=== PATIENT | male | born 1970 | race Caucasian/White ===

== ENCOUNTER 2021-05-07 23:04 | Inpatient (IN) | payer MEDICARE, OTHER ==
[~2021-05-07] VITALS: Ht 188 cm; Wt 114.9 kg
[~2021-05-07 23:04] MED LIST: NOR10T PO; OME20GT PO; SUCR1SUS16 OR
[2021-05-08 00:06] LABS: Basophils # (auto) 0 10 ^3/uL (0-0.2); Basophils % (auto) 0.3 % (0.0-2.0); Eosinophils # (auto) 0.1 10 ^3/uL (0-0.8); Eosinophils % (auto) 1.2 % (0.0-7.0); Hematocrit 38.7 % (41.0-53.0); Hemoglobin 13.5 g/dL (13.5-17.5); Lymphocytes # (auto) 0.9 10 ^3/uL (0.4-5.4); Lymphocytes % (auto) 11.7 % (10.0-50.0); Mean Corpuscular Hemoglobin 30.9 pg (28.0-32.0); Mean Corpuscular Volume 88.4 fL (80.0-100.0); Monocytes # (auto) 0.5 10 ^3/uL (0-1.3); Monocytes % (auto) 6.2 % (0.0-12.0); Neutrophils # (auto) 6.1 10 ^3/uL (1.6-8.6); Neutrophils % (auto) 80.6 % (37.0-80.0); Nucleated Red Blood Cells % 0.1 %; Red Blood Cells 4.38 10^6/uL (4.5-5.90); White Blood Cell 7.6 10^3/uL (4.4-10.8)
[2021-05-08 00:17] LABS: Albumin 4.2 g/dL (3.4-5.0); Calcium 8.5 mg/dL (8.5-10.1); Potassium 3.5 mmol/L (3.5-5.1)
[2021-05-08 00:20] LABS: Bilirubin, Total 0.8 mg/dL (0.2-1.0); Total Protein 7.3 g/dL (6.4-8.2)
[2021-05-08] MEDS ORDERED: ONDANSETRON HCL 4 MG/2 ML VIAL IV ONE (02:30)
[2021-05-08] MEDS ORDERED: MORPHINE SULFATE 10 MG/ML INJ 1ML SDV IV ONE (02:30)
[2021-05-08] MEDS ORDERED: SODIUM CHLORIDE 0.9% 1,000 ML IVB ONE (02:30)
[2021-05-08] MEDS ORDERED: MORPHINE SULF INJ 2 MG/ML SYRINGE 1ML IV ONE ×2 (02:45→05:15)
[2021-05-08] MEDS ORDERED: MORPHINE SULFATE 4 MG/ML SYR/VIAL IV ONE (02:45)
[2021-05-08 03:16] LABS: Amylase 54 U/L (25-115); Lipase 324 U/L (73-393)
[2021-05-08] MEDS ORDERED: MORPHINE SULF INJ 2 MG/ML SYRINGE 1ML IV PRN ×2 (07:30)
[2021-05-08] MEDS ORDERED: NITROGLYCERIN 0.4 MG SL TAB SL PRN (07:30)
[2021-05-08] MEDS ORDERED: ACETAMINOPHEN 325 MG TAB PO PRN (07:30)
[2021-05-08] MEDS: SODIUM CHLORIDE 0.9% 1,000 ML IV SCH (08:28)
[2021-05-08 08:33] LABS: Urine Bacteria FEW /hpf (None Seen); Urine Blood Negative /uL (Negative); Urine Mucus FEW (None Seen); Urine Specific Gravity 1.028 (1.001-1.035); Urine WBC 3 /hpf (0 - 3)
[2021-05-08] MEDS: ONDANSETRON HCL 4 MG/2 ML VIAL IV PRN ×2 (08:38→20:34)
[2021-05-08] MEDS: ENOXAPARIN SOD 40 MG/0.4 ML SYRINGE SC SCH (10:00)
[2021-05-08] MEDS: FAMOTIDINE (10MG/ML) 2ML VL IV SCH ×2 (10:30→22:45)
[2021-05-08 12:45] VITALS: BP 122/72
[2021-05-08] MEDS: HYDROmorphone HCL 2 MG/ML VL IV PRN ×3 (13:00→20:27)
[2021-05-08 13:05] VITALS: BP 122/72
[2021-05-08] MEDS ORDERED: BUSP10TA90 PO (13:07)
[2021-05-08] MEDS ORDERED: TRAZ50TA2 PO (13:07)
[2021-05-08] MEDS ORDERED: ATOR10TA PO (13:07)
[2021-05-08] MEDS ORDERED: FENO200C PO (13:07)
[2021-05-08] MEDS ORDERED: QUET200T86 PO (13:07)
[2021-05-08] MEDS ORDERED: LAMO100T44 PO (13:07)
[2021-05-08] MEDS ORDERED: LISI40TA11 PO (13:07)
[2021-05-08] MEDS ORDERED: HYDR50TA69 PO (13:07)
[2021-05-08] MEDS ORDERED: METF-370 PO (13:07)
[2021-05-08 14:07] LABS: INR 1.09 (0.9-1.15)
[2021-05-08] MEDS: metroNIDAZOLE 500MG/100ML 100 ML IV SCH ×2 (14:09→22:45)
[2021-05-08] MEDS ORDERED: BARIUM SULFATE 0.1% PO ONE (15:23)
[2021-05-08 16:22] VITALS: BP 108/60
[2021-05-08] MEDS: PIPERACILLIN-TAZOB 3.375GM 100 ML IV SCH (19:31)
[2021-05-08 22:00] VITALS: BP 113/73
[2021-05-09] MEDS: PIPERACILLIN-TAZOB 3.375GM 100 ML IV SCH ×4 (00:39→17:47)
[2021-05-09] MEDS: HYDROmorphone HCL 2 MG/ML VL IV PRN ×7 (00:39→21:41)
[2021-05-09] MEDS: SODIUM CHLORIDE 0.9% 1,000 ML IV SCH ×2 (00:39→17:30)
[2021-05-09 05:00] VITALS: BP 137/75
[2021-05-09] MEDS: metroNIDAZOLE 500MG/100ML 100 ML IV SCH ×3 (05:55→21:41)
[2021-05-09 05:57] LABS: Basophils # (auto) 0 10 ^3/uL (0-0.2); Basophils % (auto) 0.5 % (0.0-2.0); Eosinophils # (auto) 0.1 10 ^3/uL (0-0.8); Eosinophils % (auto) 2.1 % (0.0-7.0); Hematocrit 34.9 % (41.0-53.0); Hemoglobin 12.1 g/dL (13.5-17.5); Lymphocytes # (auto) 1.5 10 ^3/uL (0.4-5.4); Lymphocytes % (auto) 29.4 % (10.0-50.0); Mean Corpuscular Hemoglobin 30.5 pg (28.0-32.0); Mean Corpuscular Hgb Conc. 34.8 g/dL (32.0-36.0); Mean Corpuscular Volume 87.8 fL (80.0-100.0); Monocytes # (auto) 0.6 10 ^3/uL (0-1.3); Monocytes % (auto) 12.8 % (0.0-12.0); Neutrophils # (auto) 2.7 10 ^3/uL (1.6-8.6); Neutrophils % (auto) 55.2 % (37.0-80.0); Red Blood Cells 3.97 10^6/uL (4.5-5.90); Red Cell Distribution Width 12.9 % (11.8-14.3); White Blood Cell 4.9 10^3/uL (4.4-10.8)
[2021-05-09 06:31] LABS: Potassium 3.7 mmol/L (3.5-5.1)
[2021-05-09 06:39] LABS: Albumin 3.3 g/dL (3.4-5.0); BUN/Creatinine Ratio 17.3; Bilirubin, Total 0.5 mg/dL (0.2-1.0); Calcium 7.9 mg/dL (8.5-10.1); Total Protein 6.5 g/dL (6.4-8.2)
[2021-05-09] MEDS: ONDANSETRON HCL 4 MG/2 ML VIAL IV PRN ×3 (07:14→17:46)
[2021-05-09 09:00] VITALS: BP 111/64
[2021-05-09] MEDS: FAMOTIDINE (10MG/ML) 2ML VL IV SCH ×2 (10:25→21:41)
[2021-05-09] MEDS: ENOXAPARIN SOD 40 MG/0.4 ML SYRINGE SC SCH (10:25)
[2021-05-09 13:00] VITALS: BP 121/66
[2021-05-09 17:00] VITALS: BP 138/74
[2021-05-09 22:00] VITALS: BP 131/77
[2021-05-10] MEDS: PIPERACILLIN-TAZOB 3.375GM 100 ML IV SCH ×4 (00:47→17:17)
[2021-05-10] MEDS: HYDROmorphone HCL 2 MG/ML VL IV PRN ×7 (00:58→20:58)
[2021-05-10 05:26] VITALS: BP 121/53
[2021-05-10] MEDS: metroNIDAZOLE 500MG/100ML 100 ML IV SCH ×3 (05:32→21:59)
[2021-05-10] MEDS: ONDANSETRON HCL 4 MG/2 ML VIAL IV PRN (05:40)
[2021-05-10 05:42] LABS: Basophils # (auto) 0 10 ^3/uL (0-0.2); Basophils % (auto) 0.9 % (0.0-2.0); Eosinophils # (auto) 0.1 10 ^3/uL (0-0.8); Eosinophils % (auto) 2.9 % (0.0-7.0); Hematocrit 37.8 % (41.0-53.0); Hemoglobin 13.4 g/dL (13.5-17.5); Lymphocytes # (auto) 2.1 10 ^3/uL (0.4-5.4); Lymphocytes % (auto) 48.2 % (10.0-50.0); Mean Corpuscular Hemoglobin 31.2 pg (28.0-32.0); Mean Corpuscular Hgb Conc. 35.6 g/dL (32.0-36.0); Mean Corpuscular Volume 87.8 fL (80.0-100.0); Monocytes # (auto) 0.6 10 ^3/uL (0-1.3); Monocytes % (auto) 13.4 % (0.0-12.0); Neutrophils # (auto) 1.5 10 ^3/uL (1.6-8.6); Neutrophils % (auto) 34.6 % (37.0-80.0); Nucleated Red Blood Cells % 0.1 %; Red Cell Distribution Width 12.6 % (11.8-14.3); White Blood Cell 4.4 10^3/uL (4.4-10.8)
[2021-05-10 06:06] LABS: Potassium 3.8 mmol/L (3.5-5.1)
[2021-05-10 06:13] LABS: Albumin 3.8 g/dL (3.4-5.0); BUN/Creatinine Ratio 11.2; Bilirubin, Total 0.5 mg/dL (0.2-1.0); Calcium 8.4 mg/dL (8.5-10.1); Total Protein 7.6 g/dL (6.4-8.2)
[2021-05-10 09:00] VITALS: BP 124/71
[2021-05-10] MEDS: FAMOTIDINE (10MG/ML) 2ML VL IV SCH ×2 (09:17→22:03)
[2021-05-10] MEDS: ENOXAPARIN SOD 40 MG/0.4 ML SYRINGE SC SCH (09:18)
[2021-05-10] MEDS: SODIUM CHLORIDE 0.9% 1,000 ML IV SCH (09:30)
[2021-05-10] MEDS ORDERED: GOLYTELY 4L KIT PO ONE (10:00)
[2021-05-10 11:42] LABS: INR 1.08 (0.9-1.15); Partial Thromboplastin Time 26.5 sec (23.0-31.2)
[2021-05-10] MEDS ORDERED: hydrOXYzine 25 MG TAB or CAP PO PRN (12:00)
[2021-05-10 13:00] VITALS: BP 148/76
[2021-05-10 17:00] VITALS: BP 114/64
[2021-05-10] MEDS: traZODone HCL 50 MG TAB PO PRN (20:43)
[2021-05-10] MEDS: busPIRone HCL 10 MG TAB PO SCH (21:59)
[2021-05-10] MEDS: QUEtiapine FUMARATE 100 MG TAB PO SCH (21:59)
[2021-05-10 22:00] VITALS: BP 151/74
[2021-05-10] MEDS ORDERED: traZODone HCL 50 MG TAB PO SCH (22:00)
[2021-05-11] MEDS: PIPERACILLIN-TAZOB 3.375GM 100 ML IV SCH ×5 (00:04→18:22)
[2021-05-11] MEDS: HYDROmorphone HCL 2 MG/ML VL IV PRN ×7 (00:05→22:31)
[2021-05-11] MEDS: SODIUM CHLORIDE 0.9% 1,000 ML IV SCH ×2 (03:13→18:23)
[2021-05-11 04:46] LABS: Basophils # (auto) 0 10 ^3/uL (0-0.2); Basophils % (auto) 0.7 % (0.0-2.0); Eosinophils # (auto) 0.1 10 ^3/uL (0-0.8); Eosinophils % (auto) 1.8 % (0.0-7.0); Hematocrit 33.1 % (41.0-53.0); Hemoglobin 11.8 g/dL (13.5-17.5); Lymphocytes # (auto) 1.8 10 ^3/uL (0.4-5.4); Lymphocytes % (auto) 47.2 % (10.0-50.0); Mean Corpuscular Hemoglobin 30.8 pg (28.0-32.0); Mean Corpuscular Hgb Conc. 35.6 g/dL (32.0-36.0); Mean Corpuscular Volume 86.6 fL (80.0-100.0); Monocytes # (auto) 0.4 10 ^3/uL (0-1.3); Neutrophils # (auto) 1.5 10 ^3/uL (1.6-8.6); Neutrophils % (auto) 39.3 % (37.0-80.0); Nucleated Red Blood Cells % 0.1 %; Red Blood Cells 3.82 10^6/uL (4.5-5.90); Red Cell Distribution Width 12.8 % (11.8-14.3); White Blood Cell 3.9 10^3/uL (4.4-10.8)
[2021-05-11 05:00] VITALS: BP 128/57
[2021-05-11 05:04] LABS: Potassium 3.8 mmol/L (3.5-5.1)
[2021-05-11 05:09] LABS: BUN/Creatinine Ratio 9.8; Calcium 8.3 mg/dL (8.5-10.1)
[2021-05-11] MEDS: metroNIDAZOLE 500MG/100ML 100 ML IV SCH ×3 (05:36→21:31)
[2021-05-11 09:00] VITALS: BP 123/64
[2021-05-11] MEDS: FAMOTIDINE (10MG/ML) 2ML VL IV SCH ×2 (09:36→21:31)
[2021-05-11] MEDS: lamoTRIgine 100 MG TAB PO SCH (09:36)
[2021-05-11] MEDS: busPIRone HCL 10 MG TAB PO SCH ×2 (09:36→21:31)
[2021-05-11] MEDS: ENOXAPARIN SOD 40 MG/0.4 ML SYRINGE SC SCH (09:39)
[2021-05-11] MEDS ORDERED: QUEtiapine FUMARATE 100 MG TAB PO SCH (10:00)
[2021-05-11] MEDS ORDERED: LIDOCAINE VISCOUS 2% 15ML UD ONE (11:51)
[2021-05-11] MEDS ORDERED: SODIUM CHLORIDE LOCK 10 ML ONE (11:51)
[2021-05-11] MEDS ORDERED: diphenhdrAMINE HCL 50 MG/1 ML VL ONE (11:51)
[2021-05-11] MEDS: MIDAZOLAM HCL 5 MG/ML-1ML VIAL ONE ×3 (12:52→13:06)
[2021-05-11] MEDS: fentaNYL CITRATE 100 MCG/2 ML VL ONE ×3 (12:52→13:06)
[2021-05-11] MEDS ORDERED: SIMETHICONE 40 MG/0.6 ML ORAL DROP ONE (12:53)
[2021-05-11 13:00] VITALS: BP 132/72
[2021-05-11 16:46] VITALS: BP 127/79
[2021-05-11] MEDS: traZODone HCL 50 MG TAB PO PRN (21:32)
[2021-05-11] MEDS: QUEtiapine FUMARATE 100 MG TAB PO SCH (21:32)
[2021-05-11 22:00] VITALS: BP 135/72
[2021-05-12] MEDS: PIPERACILLIN-TAZOB 3.375GM 100 ML IV SCH ×2 (00:27→06:15)
[2021-05-12 05:00] VITALS: BP 139/67
[2021-05-12] MEDS: metroNIDAZOLE 500MG/100ML 100 ML IV SCH (05:15)
[2021-05-12] MEDS: lamoTRIgine 100 MG TAB PO SCH (08:50)
[2021-05-12] MEDS: busPIRone HCL 10 MG TAB PO SCH (08:50)
[2021-05-12] MEDS: ENOXAPARIN SOD 40 MG/0.4 ML SYRINGE SC SCH (08:50)
[2021-05-12] MEDS: FAMOTIDINE (10MG/ML) 2ML VL IV SCH (08:51)
[2021-05-12] MEDS: HYDROmorphone HCL 2 MG/ML VL IV PRN ×2 (08:54→12:37)
[2021-05-12 09:00] VITALS: BP 128/65
[2021-05-12] MEDS ORDERED: levoFLOXacin 500 MG TAB PO SCH (10:00)
[2021-05-12] MEDS: SODIUM CHLORIDE 0.9% 1,000 ML IV SCH (11:30)
[2021-05-12 13:00] VITALS: BP 146/78
[2021-05-12 13:16] VITALS: BP 128/65
[2021-05-12] MEDS ORDERED: metroNIDAZOLE 500 MG TAB PO SCH (14:00)
== END 2021-05-12 14:14 | disposition home or self-care (01) | DRG 394 ==
LOC: EDBD 23:04 → ER 23:04 → EDUNIT# 23:04 → TELE 05-08 07:36 → TELE-WESTW 05-08 11:03
PROVIDERS: ADMIT Nurse Practitioner Family; ATTEND Family Medicine
PROC: 0DJD8ZZ Inspection of Lower Intestinal Tract, Via Natural or Artificial Opening Endoscopic (ICD-10-PCS; principal; 2021-05-11 12:50)
PROC: 0DJ08ZZ Inspection of Upper Intestinal Tract, Via Natural or Artificial Opening Endoscopic (ICD-10-PCS; 2021-05-11 12:50)
DX: K55.9 Vascular disorder of intestine, unspecified (principal); K50.90 Crohn's disease, unspecified, without complications; N20.0 Calculus of kidney; I86.1 Scrotal varices; N43.3 Hydrocele, unspecified; E11.65 Type 2 diabetes mellitus with hyperglycemia; D63.8 Anemia in other chronic diseases classified elsewhere; I10 Essential (primary) hypertension; E66.9 Obesity, unspecified; Z68.32 Body mass index [BMI] 32.0-32.9, adult; Z20.822 Contact with and (suspected) exposure to COVID-19; K42.9 Umbilical hernia without obstruction or gangrene; F41.9 Anxiety disorder, unspecified; K76.0 Fatty (change of) liver, not elsewhere classified; Z87.442 Personal history of urinary calculi; Z79.84 Long term (current) use of oral hypoglycemic drugs; Z79.899 Other long term (current) drug therapy
CPT/HCPCS: 36415; 74176; 76705; 76870; 80048; 80053; 81001; 82150; 83036; 83605; 83690; 83735; 84443; 85025; 85610; 85730; 86850; 86900; 86901; 87040; 87086; 87426; 93005; 96361; 96372; 96374; 96375; 96376; G0378; J2250; J2405; J2543; J3490

== ENCOUNTER → 2021-06-02 | Outpatient (CLI) | payer MEDICARE ==
[~2021-06-02] MED LIST changes: +ATOR10TA PO; +BUSP10TA90 PO; +FENO200C PO; +HYDR50TA69 PO; +LAMO100T44 PO; +LISI40TA11 PO; +METF-370 PO; +QUET200T86 PO; -SUCR1SUS16 OR; +TRAZ50TA2 PO
== END | disposition home or self-care (01) ==
LOC: LAB 11:56
PROVIDERS: ATTEND Internal Medicine Gastroenterology
DX: R10.10 Upper abdominal pain, unspecified (principal)
CPT/HCPCS: 82784; 83516; 86255

== ENCOUNTER 2025-08-19 16:12 | Inpatient (IN) | payer MEDICARE, MEDICAID ==
[~2025-08-19] VITALS: Ht 188 cm; Wt 117.2 kg
[~2025-08-19 16:12] MED LIST changes: -FENO200C PO; +FENO200C25 PO; -LISI40TA11 PO; +LISI40TA16 PO; +TRAZ-227 PO; -TRAZ50TA2 PO
--- NOTE | 2025-08-19 17:28 | DVH ---
CHEST RADIOGRAPH Indication: hypotension Technique: Single frontal view of the chest was obtained Comparison: None FINDINGS: Lines and Tubes: None Lungs: No focal consolidation. Pleura: No effusion. No pneumothorax. Cardiomediastinal contours: Unremarkable Bones: No acute osseous abnormality. IMPRESSION: 1. No acute cardiopulmonary disease.
--- NOTE | 2025-08-19 17:30 | DVH ---
Indication: abd pain Technique: CT axial images of the abdomen and pelvis are obtained without contrast. Coronal and sagit lucy reformats were obtained. Radiation Dose Information: CTDI volume is 21.62 mGy. Dose-length product is 1305.43 mGy*cm Comparison: CT AB PEL WITH ORAL CON ONLY on DOS: 05/08/21, CT ABD PELVIS WO CONTRAST on DOS: 05/07/21 FINDINGS: There is limited interpretation of the abdomen and pelvis without administration of intravenous contr ast. Lung bases demonstrate no pleural effusion. Adrenal glands, spleen, pancreas unremarkable in shape. No CT evidence for cholelithiasis. Liver unr emarkable in shape. The Right kidney demonstrates moderate right hydroureteronephrosis secondary to a mid right ureteral calculus measuring 9 mm Left kidney demonstrates no hydronephrosis /nephrolithiasis. Stomach partially distended. Small bowel loops are normal in caliber. Moderate volume stool in the colon. Normal appendix. Abdominal aortic atherosclerotic disease. Bladder partially distended. No free pelvic fluid. No ingu inal lymphadenopathy. Paraumbilical hernia containing fat measuring 7.5 x 4.6 cm. Moderate thoracolumbar degenerative disc disease. Interbody spacer at L4-5. IMPRESSION: Limited evaluation without contrast. Moderate right hydroureteronephrosis secondary to a mid right ureteral calculus measuring 9 mm. Periumbilical hernia containing fat measuring 7.5 x 4.6 cm. Moderate volume stool in the colon. Other findings as described
[2025-08-19 17:46] LABS: Hematocrit 37.1 % (41.0-53.0); Hemoglobin 12.9 g/dL (13.5-17.5); Mean Corpuscular Hemoglobin 29.7 pg (28.0-32.0); Mean Corpuscular Volume 85.5 fL (80.0-100.0); Nucleated Red Blood Cells % 0.1 %
[2025-08-19 17:52] LABS: Alanine Aminotransferase 25 U/L (7-40); Alkaline Phosphatase 49 U/L (46-116); Calcium 9.7 mg/dL (8.7-10.4); Carbon Dioxide 26 mmol/L (20-31); Chloride 107 mmol/L (98-107)
[2025-08-19 17:53] LABS: Albumin 4.6 g/dL (3.2-4.8); Anion Gap 10 (5-15); BUN/Creatinine Ratio 17.7 (10.0-20.0); Blood Urea Nitrogen 20 mg/dL (9-23); Potassium 4.1 mmol/L (3.5-5.1); Sodium 143 mmol/L (136-145); Total Protein 7.2 g/dL (5.7-8.2)
--- NOTE | 2025-08-19 17:58 | ED.PDOC ---
HPI Comments Mr. Phillips is a 54 year old male with prior medical history of kidney stone, hypertension, and type 2 diabetes mellitus, who presents today with chief complaint of hypotension. The patient states that he woke up this morning and felt lightheadedness associated with shortness of breath, he states his blood pressure reading was 86/70 mmHg, prompted him to seek medical attention room. Per the patient, for his blood pressure he is prescribed amlodipine and lisinopril, however he usually only takes lisinopril and will only take amlodipine PRN, which he did last night. He refers previous episode provoked by taking amlodipine PRN. On initial evaluation in the ED, the patient seems well, normal cardiac, BP is 128/87 mm Hg, saturating appropriately on room air, he is able to walk without difficulty, and with no overt signs of distress. Attestation note: Dr. Adler: I was the supervising attending for this ED encounter. Please see the resident's notes. I was available for questions and consultations. Differential diagnosis: As far as shortness of breath DDx include ACS, unstable angina, anxiety, PE, pneumothroax, neoplasm, cardiac ischemia, COPD, asthma, CHF, pleural effusion, tobacco abuse, pneumonia, hypoxia, hypercapnia, anemia., infection/sepsis., pulmonary edema. Asthma, Cardiac tamponade, infection. MDM: MDM: patient presented with the above HPI.-dyspnea and hypotension-----workup was initiated. patient was found with the above mentioned diagnosis. the following medications were ordered: please refer to order lists of meds and tests obtained by myself Dr. Adler. Patient ED course and VS have been stabilized. Patient has been reassessed in the ED and remained in a stable condition. Pertinent incidental findings were discussed with the patient and/or family. Patient/family voices understanding and is agreeable with plan. Patient has been observed in the ED adequate length of time to insure improvement/stability. Escalation of care considered: Consideration of escalation to observation or admission Patient was found with a known obstructing kidney stone with moderate hydroureteronephrosis in the setting of diabetes and UTI. Antibiotics initiated. Patient was ADMITTED to the medicine team for further evaluation and treatment of their presentation. Orthostatics were obtained which were unremarkable. All the reports of any imaging studies that were ordered by myself were reviewed by myself. Chief Complaint: Low Blood Pressure Time Seen by MD: 17:58 Primary Care Provider: ARMANDO Reviewed Notes: Nurses Notes, Allergies Allergies: Coded Allergies: NO KNOWN ALLERGIES (Verified , 12/30/09) Home Meds Reported Medications Buspirone Hcl (Buspirone Hcl) 10 Mg Tab, 20 MG PO Q12HR for 30 Days, MG 05/08/21 Lamotrigine (Lamotrigine) 100 Mg Tab, 1 TAB PO DAILY, #30 TAB 05/08/21 Atorvastatin Calcium (Lipitor) 10 Mg Tab, 1 TAB PO QPM, #90 TAB 1 Refill 05/08/21 Trazodone Hcl (Trazodone Hcl) 50 Mg Tab, 50 MG PO HSPRN PRN for ANXIETY, TAB 05/08/21 Hydroxyzine Hcl (Hydroxyzine Hcl) 50 Mg Tab, 50 MG PO BID for 30 Days, MG 05/08/21 Quetiapine Fumarate (Quetiapine Fumarate ER) 200 Mg Tab, 200 MG PO HS, TAB 05/08/21 Lisinopril (Lisinopril) 40 Mg Tab, 40 MG PO DAILY for 30 Days, MG 05/08/21 Fenofibrate (Fenofibrate Micronized) 200 Mg Cap, 1 CAP PO DAILY, #30 CAP 5 Refills 05/08/21 Metformin Hydrochloride (Metformin Hcl) 500 Mg Tab, 1000 MG PO DAILY for 30 Days, MG 05/08/21 Omeprazole (Prilosec Susp (For Gt)) 20 Mg Ss, 20 MG PO DAILY 04/30/10 Hydrocodone-Acetaminophen ([place] 10/325MG) 1 Tab Tb, 1 TAB PO Q4HP 04/30/10 Information Source: Patient Mode of Arrival: Ambulatory Severity: Mild Timing: Hours Duration: Since onset Radiation: Other (None) Quality: Other (None) Past Medical History PAST MEDICAL HISTORY: DM, HTN, Kidney Stones Surgical History (Other): Carpal tunnel repair, left meniscus repair surgery, back surgery Family History Family History: No family hx of DM, No family hx of HTN Social History Smoker: Non-Smoker Alcohol: Denies ETOH Use Drugs: Denies Drug Use Lives In: Home Constitutional: denies: chills, diaphoresis, fatigue, fever, malaise, sweats, weakness EENTM: denies: blurred vision, double vision Respiratory: reports: shortness of breath; denies: cough, hemoptysis, orthopnea, SOB at rest, SOB with excertion Cardiovascular: reports: dizzy spells; denies: chest pain, diaphoresis, Dyspnea on exertion, edema, lightheadedness, palpitations Gastrointestinal: reports: nausea; denies: abdomen distended, abdominal pain, constipated, diarrhea, dysphagia, difficulty swallowing, hematemesis, melena Genitourinary: denies: burning, dysuria, flank pain, frequency, hematuria, incontinence, pain, urgency Neurological: reports: dizziness; denies: fainting, headache, numbness, paresthesia, pre-existing deficit, seizure, weakness Musculoskeletal: denies: back pain, joint pain, joint swelling, muscle pain, muscle stiffness, neck pain Integumetry: denies: bruises, laceration, lesions, lumps, rash, wounds Physical Exam General Appearance: Normal, Obese HEENT: Normal ENT Inspection, PERRL/EOMI, Pharynx Normal Neck: Full Range of Motion, Non-Tender, Normal Inspection Respiratory: Chest Non-Tender, No Accessory Muscle Use, No Respiratory Distress, Normal Breath Sounds Cardiovascular: No Edema, No Murmur, No Gallop, Normal Peripheral Pulses, Regular Rate/Rhythm Breast Exam: Deferred Gastrointestinal: Non Tender, No Pulsatile Mass, Normal Bowel Sounds, Soft Genitalia: Deferred Pelvic: Deferred Rectal: Deferred Extremities: Leg edema (Presence of left nonpitting edema, no erythema, or warmth to touch, patient states this has been present for years), Normal capillary refill, Normal range of motion, Non-tender, No pedal edema Neurologic: Alert, Normal Affect, Normal Mood Cerebellar Function: Normal Reflexes: NOT DONE Skin: Normal Color Peripheral Pulses: 3+ dorsalis pedis (R), 3+ dorsalis pedis (L) Lymphatic: Other (No cervical adenopathy) Was a procedure done? Was a procedure done?: No CP Differential Dx Differential Diagnosis: A-fib, Angina, Anxiety / Panic Attack, AV Block 1st Degree, AV Block 2nd Degree, AV Block 3rd Degree, Electrolyte Disorder, Heart Failure, Hypoxia, ND Differential Diagnosis: CHF, Medical NonCompliance X-Ray, Labs, Meds, VS Vital Signs Date Time Temp Pulse Resp B/P (MAP) Pulse Ox O2 Delivery O2 Flow Rate FiO2 08/19/25 21:34 97.9 72 20 147/98 (114) 97 97.9 08/19/25 21:34 72 20 97 Room Air 08/19/25 20:16 65 08/19/25 18:47 72 144/69 69 161/87 77 158/85 08/19/25 18:23 Room Air* 0 21 08/19/25 18:10 98.2 73 18 140/87 (104) 95 98.2 08/19/25 16:19 97.3 88 19 128/87 96 97.3 Lab Test 08/19/25 20:11 08/19/25 18:50 08/19/25 17:44 08/19/25 17:04 Range/Units Troponin I High Sensitivity < 3 L 3 L 4 </=54 ng/L Urine Color Yellow Yellow Urine Clarity Clear Clear Urine pH 5.5 5.0-9.0 Urine Specific [place] 1.027 1.001-1.035 Urine Protein Trace H Negative Urine Ketones Negative Negative Urine Blood 3+ H Negative /uL Urine Nitrite Negative Negative Urine Bilirubin Negative Negative Urine Urobilinogen Normal Negative mg/dL Urine Leukocyte Esterase 2+ Negative /uL Urine RBC 43 0 - 3 /hpf Urine Microscopic WBC 26 H 0-3 /HPF Urine Squamous Epithelial Cells Few <5 /hpf Urine Bacteria None seen None Seen /hpf Urine Mucus Few None Seen Urine Glucose 3+ H Normal mg/dL White Blood Count 5.9 4.4-10.8 10^3/uL Red Blood Count 4.34 L 4.5-5.90 10^6/uL Hemoglobin 12.9 L 13.5-17.5 g/dL Hematocrit 37.1 L 41.0-53.0 % Mean Corpuscular Volume 85.5 80.0-100.0 fL Mean Corpuscular Hemoglobin 29.7 28.0-32.0 pg Mean Corpuscular Hemoglobin Concent 34.7 32.0-36.0 g/dL Red Cell Distribution Width 13.7 11.8-14.3 % Platelet Count 281 140-450 10^3/uL Mean Platelet Volume 7.6 6.9-10.8 fL Neutrophils (%) (Auto) 58.0 37.0-80.0 % Lymphocytes (%) (Auto) 31.6 10.0-50.0 % Monocytes (%) (Auto) 6.3 0.0-12.0 % Eosinophils (%) (Auto) 3.2 0.0-7.0 % Basophils (%) (Auto) 0.9 0.0-2.0 % Neutrophils # (Auto) 3.4 1.6-8.6 10 ^3/uL Lymphocytes # (Auto) 1.9 0.4-5.4 10 ^3/uL Monocytes # (Auto) 0.4 0-1.3 10 ^3/uL Eosinophils # (Auto) 0.2 0-0.8 10 ^3/uL Basophils # (Auto) 0.1 0-0.2 10 ^3/uL Nucleated Red Blood Cells 0.1 % Sodium Level 143 136-145 mmol/L Potassium Level 4.1 3.5-5.1 mmol/L Chloride Level 107 98-107 mmol/L Carbon Dioxide Level 26 20-31 mmol/L Anion Gap 10 5-15 Blood Urea Nitrogen 20 9-23 mg/dL Creatinine 1.13 0.700-1.30 mg/dL Glomerular Filtration Rate Calc 78 >90 mL/min BUN/Creatinine Ratio 17.7 10.0-20.0 Serum Glucose 176 H 74-106 mg/dL Lactic Acid Level 1.5 0.4-2.0 mmol/L Calcium Level 9.7 8.7-10.4 mg/dL Total Bilirubin 0.2 0.2-1.0 mg/dL Aspartate Amino Transferase (AST) 14 13-40 U/L Alanine Aminotransferase (ALT) 25 7-40 U/L Alkaline Phosphatase 49 46-116 U/L B-Type Natriuretic Peptide 36.62 0-100 pg/mL Total Protein 7.2 5.7-8.2 g/dL Albumin 4.6 3.2-4.8 g/dL Current Medications Medications (Trade) Dose Ordered Sig/[place] Route Start Time Stop Time Status Last Admin Sodium Chloride 1,000 ml @ 1,000 mls/hr Q1H ONCE IV 08/19/25 16:45 08/19/25 17:44 DC 08/19/25 18:16 Ceftriaxone Sodium 50 ml @ 100 mls/hr ONCE ONCE IV 08/19/25 20:00 08/19/25 20:29 DC 08/19/25 21:03 Time of 1ST Reevaluation: 18:00 Reevaluation 1ST: Unchanged Patient Education/Counseling: Diagnosis, Treatment Family Education/Counseling: No Family Present Comments The patient presents today with chief complaint of hypotension and dizziness Initial evaluation, the patient's vitals are stable, he is ambulating without difficulty, and without overt signs of distress Physical is significant for presence of left calf non pitting edema that per the patient has been present for years and is hereditary, denies previous diagnosis of lymphedema, but states he has had clot work up on multiple occasions that has been negative CBC significant for mild anemia, CMP without significant findings, troponins are negative, UA shows UTI Chest x-ray shows no cardiopulmonary disease Abdominal CT shows moderate right hydroureteronephrosis secondary to a mid right ureteral calculus measuring 9 mm, periumbilical hernia containing fat measuring 7.5 x 4.6 cm, moderate volume in the colon. The patient was given 1 L of NS Orthostatic vitals were taken with the following values: 144/69 lying down, 161/87 sitting, 158/85 standing IV ceftriaxone 1 g was given Follow-up re-evaluation the patient vitals are stable The patient will be admitted for IV antibiotics and evaluation by urology. SEPSIS Sepsis Screen Date sepsis recognized/suspect: Aug 19, 2025 Time Sepsis recognized/suspect: 1618 Recent Procedure: No On Antibiotic Therapy: No Respiratory Rate >20: No Heart Rate >90: No Temp<36 C (96.8 F) or >38.3 C: No SBP <90 or MAP <65 mmHG: No New Acute Mental Status Change: No Is the patient on CPAP, BIPAP,: No Physician Orders [place] (08/19/25 ) Chest Portable (08/19/25 16:41) Ct Ab Pel Wo Con-No Oral Or Iv (08/19/25 16:43) Orthostatic Vital Signs (08/19/25 ) Vital Signs Date Time Temp Pulse Resp B/P (MAP) Pulse Ox O2 Delivery O2 Flow Rate FiO2 08/19/25 21:34 97.9 72 20 147/98 (114) 97 97.9 08/19/25 21:34 72 20 97 Room Air 08/19/25 20:16 65 08/19/25 18:47 72 144/69 69 161/87 77 158/85 08/19/25 18:23 Room Air* 0 21 08/19/25 18:10 98.2 73 18 140/87 (104) 95 98.2 08/19/25 16:19 97.3 88 19 128/87 96 97.3 Laboratory Tests Test 08/19/25 17:04 Lactic Acid Level 1.5 mmol/L (0.4-2.0) White Blood Count 5.9 10^3/uL (4.4-10.8) Medications Medications Dose Ordered Sig/Rivera Route Start Time Stop Time Status Last Admin Dose Admin Ceftriaxone Sodium 50 ml @ 100 mls/hr ONCE ONCE IV 08/19/25 20:00 08/19/25 20:29 DC 08/19/25 21:03 Sodium Chloride 1,000 ml @ 1,000 mls/hr Q1H ONCE IV 08/19/25 16:45 08/19/25 17:44 DC 08/19/25 18:16 Departure 1 Departure Time of Disposition: 20:03 Impression: Primary Impression: Ureter obstruction Additional Impressions: UTI (urinary tract infection) Hydroureteronephrosis Hypotensive episode Disposition: ADMITTED INPATIENT Admit to: Tele Condition: Guarded Discharged With: Self Critical Care Note Critical Care Time?: Yes (45 min-critical care time only) Stability Stability form required: No Heart Score Heart Score: Heart Score Response (Comments) Value History Slightly Suspicious 0 EKG N/A 0 Age 45-64 1 Risk Factors 1 or 2 risk factors 1 Troponin Normal limit 0 Total 2 JUAN RODRIGUES RESIDENT Aug 19, 2025 17:58 STEVEN ADLER DO Aug 19, 2025 21:48
[2025-08-19] MEDS: SODIUM CHLORIDE 0.9% 1,000 ML IV ONE ×2 (18:16→21:45)
[2025-08-19 18:42] LABS: Bilirubin, Total 0.2 mg/dL (0.2-1.0); Glucose 176 mg/dL (74-106)
[2025-08-19 19:43] LABS: Urine Protein, UAD TRACE (Negative)
--- NOTE | 2025-08-19 20:17 | ECG ---
[facility] Test Date: 2025-08-19 Test Time: 20:16:27 Pat Name: SHY HERNANDES Department: [facility] ED Patient ID: [facility]-[id number] Room: [facility] Gender: M Md Do Resident Urgent Care: [place] : 1970 Requested By: STEVEN TROTTER Order Number: [id number] Reading MD: Joseph Page Measurements Intervals [place] Rate: 65 P: -47 SC: 246 QRS: 68 QRSD: 94 T: 72 QT: 405 QTc: 422 Interpretive Statements Sinus or ectopic atrial rhythm Prolonged SC interval Baseline wander in lead(s) V3 Electronically Signed On 08-20-2025 13:57:10 PST by Joseph Page Please click the below link to view image of tracing.
--- NOTE | 2025-08-19 21:38 | DVHHPRES ---
History of Present Illness Resident Creating Document: NARAYAN MORENO History of Present Illness Patient is a 54-year-old male with past medical history of recurrent kidney stones, HTN, type 2 diabetes mellitus and anxiety, presented to [facility] ED with complaint of hypotension and right flank pain. This morning around 11 AM, he experienced dizziness and fatigue and he measured his blood pressure at home, which was 86/70 mmHg, prompting him to seek medical attention. He is prescribed amlodipine and lisinopril for hypertension but typically only takes lisinopril; he uses amlodipine PRN, which he took last night. He recalls a similar episode of hypotension previously after taking amlodipine. He has been experiencing right flank pain for a few weeks, described as stabbing and aching, radiating to the right abdomen. The pain is associated with nausea and dizziness. On evaluation in the ED, patient is afebrile, vital signs show BP 144/60 mmHg. Initial significant normocytic anemia, serum glucose 176. Abdominal CT shows moderate right hydroureteronephrosis secondary to a mid right ureteral calculus measuring 9 mm. The patient was started on IV antibiotics and IV fluids. Patient is admitted for further evaluation and management. Past Medical History recurrent kidney stones, HTN, type 2 diabetes mellitus, anxiety Past Surgical History Copper tunnel repair, left meniscus repair, back surgery Family History: None Smoke: No ALCOHOL: none Drugs: None Lives: with Family Review of Systems Review of Systems Constitution: Dizziness, fatigue Eyes: No Pain, No Vision change, No Conjunctivae inflammation, No Eyelid inflammation, No Other, No Redness ENT: No Ear pain, No Ear discharge, No Nose pain, No Nose discharge, No Nose congestion, No Mouth pain, No Mouth swelling, No Throat pain, No Throat swelling, No Other Cardiovascular: No Chest Pain, No Palpitations, No Orthopnea, No Paroxysmal No Dyspnea, No Edema, No Lt Headedness, No Other Respiratory: No Cough, No Dry, No Shortness of breath, No SOB with exertion, No Wheezing, No Hemoptysis, No Pleuritic Pain, No Sputum, No Other Gastrointestinal: Nausea, No Vomiting, Abdominal Pain, No Diarrhea, No Constipation, No Melena, No Hematochezia, No Other Genitourinary: No Dysuria, No Frequency, No Incontinence, No Hematuria, No Retention, No Other Musculoskeletal: No other, No neck pain, No shoulder pain, No arm pain, No back pain, No hand pain, No leg pain, No foot pain. Right flank pain. Skin: No Rash, No Lesions, No Jaundice, No Bruising, No Other Allergies: Coded Allergies: NO KNOWN ALLERGIES (Verified , 12/30/09) Exam Vital Signs Vital Signs Date Time Temp Pulse Resp B/P (MAP) Pulse Ox O2 Delivery O2 Flow Rate FiO2 08/19/25 21:34 97.9 72 20 147/98 (114) 97 97.9 08/19/25 21:34 Room Air 08/19/25 18:23 0 21 Exam General Appearance: Cooperative. Well developed. Well nourished. NAD Head Exam: Normal inspection Neck Exam: Normal inspection. Non-tender. Normal alignment Pulmonary/Respiratory: Chest non-tender. Clear bilateral breath sounds, no crackles, no wheezing. Cardiovascular/Chest: Regular rate and rhythm. No murmurs. No JVD. Peripheral Pulses: 2+ Radial (R). 2+ Radial (L). 2+ Pedal (R). 2+ Pedal (L) Abdominal Exam: Normal bowel sounds. Soft. normal abdomen, no visible veins, Nontender. No hepatospenomegaly. No masses. Right CVA tenderness Ankle Exam: Negative ankle edema Lower extremities: Left lower extremity edema (Presence of left nonpitting edema, no erythema, or warmth to touch, patient states this has been present for years.) Neuro/Mental Status: A&O x4. Coherent. Thoughts/Psych: Normal thought pattern. Appropriate mood and affect. Good judgement and insight Skin Exam: Normal inspection. Normal color. Warm. Dry Labs/Xrays Labs Test 08/19/25 20:11 08/19/25 18:50 08/19/25 17:04 Range/Units Troponin I High Sensitivity < 3 L </=54 ng/L Urine Color Yellow Yellow Urine Clarity Clear Clear Urine pH 5.5 5.0-9.0 Urine Specific [place] 1.027 1.001-1.035 Urine Protein Trace H Negative Urine Ketones Negative Negative Urine Blood 3+ H Negative /uL Urine Nitrite Negative Negative Urine Bilirubin Negative Negative Urine Urobilinogen Normal Negative mg/dL Urine Leukocyte Esterase 2+ Negative /uL Urine RBC 43 0 - 3 /hpf Urine Microscopic WBC 26 H 0-3 /HPF Urine Squamous Epithelial Cells Few <5 /hpf Urine Bacteria None seen None Seen /hpf Urine Mucus Few None Seen Urine Glucose 3+ H Normal mg/dL White Blood Count 5.9 4.4-10.8 10^3/uL Red Blood Count 4.34 L 4.5-5.90 10^6/uL Hemoglobin 12.9 L 13.5-17.5 g/dL Hematocrit 37.1 L 41.0-53.0 % Mean Corpuscular Volume 85.5 80.0-100.0 fL Mean Corpuscular Hemoglobin 29.7 28.0-32.0 pg Mean Corpuscular Hemoglobin Concent 34.7 32.0-36.0 g/dL Red Cell Distribution Width 13.7 11.8-14.3 % Platelet Count 281 140-450 10^3/uL Mean Platelet Volume 7.6 6.9-10.8 fL Neutrophils (%) (Auto) 58.0 37.0-80.0 % Lymphocytes (%) (Auto) 31.6 10.0-50.0 % Monocytes (%) (Auto) 6.3 0.0-12.0 % Eosinophils (%) (Auto) 3.2 0.0-7.0 % Basophils (%) (Auto) 0.9 0.0-2.0 % Neutrophils # (Auto) 3.4 1.6-8.6 10 ^3/uL Lymphocytes # (Auto) 1.9 0.4-5.4 10 ^3/uL Monocytes # (Auto) 0.4 0-1.3 10 ^3/uL Eosinophils # (Auto) 0.2 0-0.8 10 ^3/uL Basophils # (Auto) 0.1 0-0.2 10 ^3/uL Nucleated Red Blood Cells 0.1 % Sodium Level 143 136-145 mmol/L Potassium Level 4.1 3.5-5.1 mmol/L Chloride Level 107 98-107 mmol/L Carbon Dioxide Level 26 20-31 mmol/L Anion Gap 10 5-15 Blood Urea Nitrogen 20 9-23 mg/dL Creatinine 1.13 0.700-1.30 mg/dL Glomerular Filtration Rate Calc 78 >90 mL/min BUN/Creatinine Ratio 17.7 10.0-20.0 Serum Glucose 176 H 74-106 mg/dL Lactic Acid Level 1.5 0.4-2.0 mmol/L Calcium Level 9.7 8.7-10.4 mg/dL Total Bilirubin 0.2 0.2-1.0 mg/dL Aspartate Amino Transferase (AST) 14 13-40 U/L Alanine Aminotransferase (ALT) 25 7-40 U/L Alkaline Phosphatase 49 46-116 U/L B-Type Natriuretic Peptide 36.62 0-100 pg/mL Total Protein 7.2 5.7-8.2 g/dL Albumin 4.6 3.2-4.8 g/dL SEPSIS Sepsis Screen Date sepsis recognized/suspect: Aug 19, 2025 Time Sepsis recognized/suspect: 2136 Recent Procedure: No On Antibiotic Therapy: No Respiratory Rate >20: No Heart Rate >90: No Temp<36 C (96.8 F) or >38.3 C: No SBP <90 or MAP <65 mmHG: No New Acute Mental Status Change: No Is the patient on CPAP, BIPAP,: No Physician Orders [place] (08/19/25 ) Chest Portable (08/19/25 16:41) Ct Ab Pel Wo Con-No Oral Or Iv (08/19/25 16:43) Orthostatic Vital Signs (08/19/25 ) Vital Signs Date Time Temp Pulse Resp B/P (MAP) Pulse Ox O2 Delivery O2 Flow Rate FiO2 08/19/25 21:34 97.9 72 20 147/98 (114) 97 97.9 08/19/25 21:34 72 20 97 Room Air 08/19/25 20:16 65 08/19/25 18:47 72 144/69 69 161/87 77 158/85 08/19/25 18:23 Room Air* 0 21 08/19/25 18:10 98.2 73 18 140/87 (104) 95 98.2 08/19/25 16:19 97.3 88 19 128/87 96 97.3 Laboratory Tests Test 08/19/25 17:04 Lactic Acid Level 1.5 mmol/L (0.4-2.0) White Blood Count 5.9 10^3/uL (4.4-10.8) Medications Medications Dose Ordered Sig/Rivera Route Start Time Stop Time Status Last Admin Dose Admin Ceftriaxone Sodium 50 ml @ 100 mls/hr ONCE ONCE IV 08/19/25 20:00 08/19/25 20:29 DC 08/19/25 21:03 100 MLS/HR Sodium Chloride 1,000 ml @ 1,000 mls/hr Q1H ONCE IV 08/19/25 16:45 08/19/25 17:44 DC 08/19/25 18:16 1,000 MLS/HR Assessment/Plan Assessment/Plan Right hydroureteronephrosis Right nephrolithiasis Periumbilical hernia CXR: No acute cardiopulmonary disease. Abdomen/pelvis CT: Moderate right hydroureteronephrosis secondary to a mid right ureteral calculus measuring 9 mm. Periumbilical hernia containing fat measuring 7.5 x 4.6 cm. Moderate volume stool in the colon. Urology consult Tamsulosin 0.4 MG PO pain management with [place] 1 tab p.o.q4h and Morphine 2 MG IV q4h prn Zofran 4 MG IV q4h IV NS 150 MLS/HR one UDS UTI UA: positive for UTI Urine bacterial culture Ceftriaxone IV daily Hypertension Amlodipine 5 MG PO Type 2 diabetes mellitus with hyperglycemia, uncontrolled Mild sliding scale Diet: Cardiac Goals of care: Full code, discussed for >30 minutes on 08/19/25 Plan discussed with patient Plan discussed with Dr. White Plan discussed with: Patient NARAYAN MORENO RESIDENT Aug 19, 2025 21:38
[2025-08-19] MEDS ORDERED: DEXTROSE (50%) 50ML SYRG IV PRN (21:45)
[2025-08-19] MEDS: TAMSULOSIN HYDROCHLORIDE 0.4 MG CAP PO ONE ×2 (21:45)
[2025-08-19] MEDS: InsuLIN REG 1unit/0.01ml Soln (100units/ml) SC SCH (22:00)
[2025-08-19] MEDS: ACCU-CHEK COMFORT CURVE STRIP VI SCH (22:00)
--- NOTE | 2025-08-19 22:52 | DVH ---
CLINICAL HISTORY: rule out DVT, leg swelling, pain TECHNIQUE: Color and duplex doppler imaging of the left lower extremity veins was performed. Vessel c ompression if possible was also performed. WID: COMPARISON: VAS ARTERIAL LOWER EXTREM LEFT on DOS: 01/18/25, VAS VENOUS LOWER EXTREM LEFT on DOS: 5 FINDINGS: Left common femoral vein: Normal compressibility and flow. Left femoral vein: Normal compressibility and flow. Left popliteal vein: Normal compressibility and flow. IMPRESSION: 1. NO SONOGRAPHIC EVIDENCE FOR DEEP VENOUS THROMBOSIS IN THE LEFT LOWER EXTREMITY VEINS.
[2025-08-19] MEDS: MORPHINE SULFATE INJ 2 MG/ml SYRG IV PRN (22:55)
[2025-08-19 23:51] LABS: Benzodiazephine Screen, Urine Neg (NEGATIVE)
[2025-08-19 23:53] LABS: Barbiturate Scree,Urine Neg (NEGATIVE); Opiate Scree,Urine Pos (NEGATIVE); Phencyclidine Screen, Urine Neg (NEGATIVE)
[2025-08-19 23:54] LABS: Amphetamine Screen, Urine Neg (NEGATIVE); Cannabinoid Screen, Urine Neg (NEGATIVE); Cocaine Screen, Urine Neg (NEGATIVE)
[2025-08-20] VITALS (7 sets, daily range): BP systolic 123–154; BP diastolic 66–97; PULSE 61–80; RESP 13–20; TEMP 97–98.1; O2SAT 95–98
[2025-08-20] MEDS: HYDROcodone-ACET 5/325MG TAB PO PRN (00:11)
[2025-08-20] MEDS ORDERED: HYDR50TA69 PO (00:26)
[2025-08-20] MEDS ORDERED: METF-372 PO (00:27)
[2025-08-20] MEDS ORDERED: IBUP-1456 PO (00:29)
[2025-08-20] MEDS: ONDANSETRON HCL 4 MG/2 ML VIAL IV PRN (02:04)
[2025-08-20] MEDS: HYDROmorphone HCL 2 MG/ML VL/or syr IV ONE ×2 (02:06→12:12)
[2025-08-20 06:32] LABS: Hematocrit 32.0 % (41.0-53.0); Hemoglobin 11.3 g/dL (13.5-17.5); Mean Corpuscular Hemoglobin 30.2 pg (28.0-32.0); Mean Corpuscular Volume 85.9 fL (80.0-100.0); Nucleated Red Blood Cells % 0.1 %
[2025-08-20 06:54] LABS: Alanine Aminotransferase 21 U/L (7-40); Albumin 4.0 g/dL (3.2-4.8); Anion Gap 12 (5-15); BUN/Creatinine Ratio 10.6 (10.0-20.0); Blood Urea Nitrogen 12 mg/dL (9-23); Carbon Dioxide 26 mmol/L (20-31); Potassium 3.5 mmol/L (3.5-5.1); Sodium 145 mmol/L (136-145); Total Protein 6.4 g/dL (5.7-8.2)
[2025-08-20 06:55] LABS: Alkaline Phosphatase 41 U/L (46-116); Bilirubin, Total 0.3 mg/dL (0.2-1.0); Calcium 8.4 mg/dL (8.7-10.4); Chloride 107 mmol/L (98-107); Glucose 179 mg/dL (74-106)
--- NOTE | 2025-08-20 10:09 | DVHINCON2 ---
Date of service: Aug 20, 2025 Referring Physician Hospitalist Reason for Consultation 9 mm right mid ureteral calculus with moderate hydronephrosis Right flank pain requiring Dilaudid therapy History of Present Illness 54-year-old male with past medical history of recurrent kidney stones, HTN, type 2 diabetes mellitus and anxiety, presented to [facility] ED with complaint of hypotension and right flank pain. . Abdominal CT shows moderate right hydroureteronephrosis secondary to a mid right ureteral calculus measuring 9 mm. The patient was started on IV antibiotics and IV fluids. Patient is admitted for further evaluation and management. (STAT consult was requested but patient has not been kept NPO.) Past Medical History recurrent kidney stones, HTN, type 2 diabetes mellitus, anxiety Past Surgical History Carpel tunnel repair, left meniscus repair, back surgery Family History: Cardiovascular disease G8 FATHER FH: cancer G8 MOTHER FH: skin cancer Fibromyalgia G8 MOTHER Hypertension G8 FATHER Allergies: Coded Allergies: NO KNOWN ALLERGIES (Verified , 12/30/09) Home Meds Reported Medications Ibuprofen (Ibuprofen) 800 Mg Tab, 800 MG PO Q6HP PRN for PAIN SCALE 1 THRU 6, TAB 08/20/25 Metformin Hydrochloride (Metformin Hcl) 1,000 Mg Tab, 1 TAB PO BID, #60 TAB 5 Refills 08/20/25 Hydroxyzine Hcl (Hydroxyzine Hcl) 50 Mg Tab, 50 MG PO DAILY, TAB 08/20/25 Buspirone Hcl (Buspirone Hcl) 10 Mg Tab, 20 MG PO Q12HR for 30 Days, MG 05/08/21 Lamotrigine (Lamotrigine) 100 Mg Tab, 1 TAB PO DAILY, #30 TAB 05/08/21 Trazodone Hcl (Trazodone Hcl) 50 Mg Tab, 50 MG PO HSPRN PRN for ANXIETY, TAB 05/08/21 Quetiapine Fumarate (Quetiapine Fumarate ER) 200 Mg Tab, 200 MG PO HS, TAB 05/08/21 Lisinopril (Lisinopril) 40 Mg Tab, 40 MG PO DAILY for 30 Days, MG 05/08/21 Fenofibrate (Fenofibrate Micronized) 200 Mg Cap, 1 CAP PO DAILY, #30 CAP 5 Refills 05/08/21 Omeprazole (Prilosec Susp (For Gt)) 20 Mg Ss, 20 MG PO DAILY 04/30/10 Hydrocodone-Acetaminophen ([place] 10/325MG) 1 Tab Tb, 1 TAB PO Q4HP 04/30/10 Discontinued Reported Medications Atorvastatin Calcium (Lipitor) 10 Mg Tab, 1 TAB PO QPM, #90 TAB 1 Refill 05/08/21 Hydroxyzine Hcl (Hydroxyzine Hcl) 50 Mg Tab, 50 MG PO BID for 30 Days, MG 05/08/21 Metformin Hydrochloride (Metformin Hcl) 500 Mg Tab, 1000 MG PO DAILY for 30 Days, MG 05/08/21 Current Medications Current Medications Medications (Trade) Dose Ordered Sig/Rivera Route PRN Reason Start Time Stop Time Status Last Admin Acetaminophen/ Hydrocodone Bitart ([place] 5/325MG Tab) 1 tab Q4HP PRN PO MODERATE PAIN (4-6 PAIN SCALE) 08/19/25 21:45 08/20/25 08:21 Ondansetron HCl (Zofran) 4 mg Q4HP PRN IV NAUSEA / VOMITING 08/19/25 21:45 08/20/25 02:04 Docusate Sodium (Colace Capsule) 100 mg BIDPRN PRN PO FOR CONSTIPATION 08/19/25 21:45 Tamsulosin HCl (Flomax) 0.4 mg QPM PO 08/20/25 18:00 Ceftriaxone Sodium 50 ml @ 100 mls/hr DAILY@09 IV 08/20/25 09:00 08/20/25 08:18 Amlodipine Besylate (Norvasc Tablet) 5 mg DAILY PO 08/20/25 10:00 08/20/25 08:21 Diagnostic Test (Pha) (Accu-Chek Comfort Curve T) 1 strip ACHS 08/19/25 22:00 08/20/25 06:27 Insulin Human Regular (InsuLIN R) ACHS SC 08/19/25 22:00 08/20/25 06:26 Dextrose 50 ml UD PRN IV Blood Sugar LESS THAN 60 08/19/25 21:45 Morphine Sulfate 2 mg Q4HPRN PRN IV SEVERE PAIN (7-10 PAIN SCALE) 08/19/25 21:45 08/20/25 06:27 Review of Systems Constitution: Dizziness, fatigue Eyes: No Pain, No Vision change, No Conjunctivae inflammation, No Eyelid inflammation, No Other, No Redness ENT: No Ear pain, No Ear discharge, No Nose pain, No Nose discharge, No Nose congestion, No Mouth pain, No Mouth swelling, No Throat pain, No Throat swelling, No Other Cardiovascular: No Chest Pain, No Palpitations, No Orthopnea, No Paroxysmal No Dyspnea, No Edema, No Lt Headedness, No Other Respiratory: No Cough, No Dry, No Shortness of breath, No SOB with exertion, No Wheezing, No Hemoptysis, No Pleuritic Pain, No Sputum, No Other Gastrointestinal: Nausea, No Vomiting, Abdominal Pain, No Diarrhea, No Constipation, No Melena, No Hematochezia, No Other Genitourinary: No Dysuria, No Frequency, No Incontinence, No Hematuria, No Retention, No Other Musculoskeletal: No other, No neck pain, No shoulder pain, No arm pain, No back pain, No hand pain, No leg pain, No foot pain. Right flank pain. Skin: No Rash, No Lesions, No Jaundice, No Bruising, No Other Allergies: Coded Allergies: NO KNOWN ALLERGIES (Verified , 12/30/09) Vital Signs Vital Signs Date Time Temp Pulse Resp B/P (MAP) Pulse Ox O2 Delivery O2 Flow Rate FiO2 08/20/25 09:49 97.0 67 17 142/97 (112) 98 97.0 08/20/25 08:08 Room Air* 0 21 Physical Exam Vital Signs Date Time Temp Pulse Resp B/P (MAP) Pulse Ox O2 Delivery O2 Flow Rate FiO2 08/19/25 21:34 97.9 72 20 147/98 (114) 97 97.9 08/19/25 21:34 Room Air 08/19/25 18:23 0 21 Exam General Appearance: Cooperative. Well developed. Well nourished. NAD Head Exam: Normal inspection Neck Exam: Normal inspection. Non-tender. Normal alignment Pulmonary/Respiratory: Chest non-tender. Clear bilateral breath sounds, no crackles, no wheezing. Cardiovascular/Chest: Regular rate and rhythm. No murmurs. No JVD. Peripheral Pulses: 2+ Radial (R). 2+ Radial (L). 2+ Pedal (R). 2+ Pedal (L) Abdominal Exam: Normal bowel sounds. Soft. normal abdomen, no visible veins, Nontender. No hepatospenomegaly. No masses. Right CVA tenderness Ankle Exam: Negative ankle edema Lower extremities: Left lower extremity edema (Presence of left nonpitting edema, no erythema, or warmth to touch, patient states this has been present for years.) Neuro/Mental Status: A&O x4. Coherent. Thoughts/Psych: Normal thought pattern. Appropriate mood and affect. Good judgement and insight Skin Exam: Normal inspection. Normal color. Warm. Dry Labs/Diagnostic Data Labs Test 08/20/25 06:07 08/20/25 04:32 08/19/25 20:11 08/19/25 18:50 Range/Units POC Glucose 150 H 70-106 mg/dl White Blood Count 6.0 4.4-10.8 10^3/uL Red Blood Count 3.73 L 4.5-5.90 10^6/uL Hemoglobin 11.3 L 13.5-17.5 g/dL Hematocrit 32.0 #L 41.0-53.0 % Mean Corpuscular Volume 85.9 80.0-100.0 fL Mean Corpuscular Hemoglobin 30.2 28.0-32.0 pg Mean Corpuscular Hemoglobin Concent 35.2 32.0-36.0 g/dL Red Cell Distribution Width 13.9 11.8-14.3 % Platelet Count 233 140-450 10^3/uL Mean Platelet Volume 7.7 6.9-10.8 fL Neutrophils (%) (Auto) 49.1 37.0-80.0 % Lymphocytes (%) (Auto) 38.1 10.0-50.0 % Monocytes (%) (Auto) 8.0 0.0-12.0 % Eosinophils (%) (Auto) 4.2 0.0-7.0 % Basophils (%) (Auto) 0.6 0.0-2.0 % Neutrophils # (Auto) 3.0 1.6-8.6 10 ^3/uL Lymphocytes # (Auto) 2.3 0.4-5.4 10 ^3/uL Monocytes # (Auto) 0.5 0-1.3 10 ^3/uL Eosinophils # (Auto) 0.3 0-0.8 10 ^3/uL Basophils # (Auto) 0 0-0.2 10 ^3/uL Nucleated Red Blood Cells 0.1 % Sodium Level 145 136-145 mmol/L Potassium Level 3.5 3.5-5.1 mmol/L Chloride Level 107 98-107 mmol/L Carbon Dioxide Level 26 20-31 mmol/L Anion Gap 12 5-15 Blood Urea Nitrogen 12 9-23 mg/dL Creatinine 1.13 0.700-1.30 mg/dL Glomerular Filtration Rate Calc 78 >90 mL/min BUN/Creatinine Ratio 10.6 10.0-20.0 Serum Glucose 179 H 74-106 mg/dL Calcium Level 8.4 L 8.7-10.4 mg/dL Total Bilirubin 0.3 0.2-1.0 mg/dL Aspartate Amino Transferase (AST) 15 13-40 U/L Alanine Aminotransferase (ALT) 21 7-40 U/L Alkaline Phosphatase 41 L 46-116 U/L Total Protein 6.4 5.7-8.2 g/dL Albumin 4.0 3.2-4.8 g/dL Troponin I High Sensitivity < 3 L </=54 ng/L Urine Color Yellow Yellow Urine Clarity Clear Clear Urine pH 5.5 5.0-9.0 Urine Specific [place] 1.027 1.001-1.035 Urine Protein Trace H Negative Urine Ketones Negative Negative Urine Blood 3+ H Negative /uL Urine Nitrite Negative Negative Urine Bilirubin Negative Negative Urine Urobilinogen Normal Negative mg/dL Urine Leukocyte Esterase 2+ Negative /uL Urine RBC 43 0 - 3 /hpf Urine Microscopic WBC 26 H 0-3 /HPF Urine Squamous Epithelial Cells Few <5 /hpf Urine Bacteria None seen None Seen /hpf Urine Mucus Few None Seen Urine Glucose 3+ H Normal mg/dL Urine Opiates Screen Pos NEGATIVE Urine Fentanyl Screen Neg NEGATIVE Urine Barbiturates Screen Neg NEGATIVE Urine Phencyclidine Screen Neg NEGATIVE Urine Amphetamines Screen Neg NEGATIVE Urine Benzodiazepines Screen Neg NEGATIVE Urine Cocaine Screen Neg NEGATIVE Urine Cannabinoids Screen Neg NEGATIVE Test 08/19/25 17:44 08/19/25 17:04 Range/Units Thyroid Stimulating Hormone (TSH) 2.94 0.55-4.78 uIU/mL Lactic Acid Level 1.5 0.4-2.0 mmol/L Magnesium Level 1.7 1.6-2.6 mg/dL B-Type Natriuretic Peptide 36.62 0-100 pg/mL Assessment Right flank pain Right mid ureteral calculus, 9 mm Right hydronephrosis Plan/Recommendation Patient to remain NPO Cystoscopy with right ureteral stent placement Outpatient ESWL and stent removal to be arranged as outpatient Plan discussed with: Patient, Other JAMIE MIN MD Aug 20, 2025 10:08
--- NOTE | 2025-08-20 11:10 | DVHPN2 ---
Reviewed: Care Plan, H&P, Labs, Medications, Previous Orders, Radiology Changes from previous H/P or p: No Changes Objective Vitals Vital Signs Date Time Temp Pulse Resp B/P (MAP) Pulse Ox O2 Delivery O2 Flow Rate FiO2 08/20/25 10:37 68 19 158/102 08/20/25 09:49 97.0 98 97.0 08/20/25 08:08 Room Air* 0 21 Intake/Output Intake and Output 08/20/25 07:00 Intake Total 650 ml Balance 650 ml Intake Oral 650 ml # Voids 2 Medications Current Medications Medications Dose Ordered Sig/Rivera Route Start Time Stop Time Status Last Admin Dose Admin Acetaminophen/ Hydrocodone Bitart 1 tab Q4HP PRN PO 08/19/25 21:45 08/20/25 08:21 1 TAB Ondansetron HCl 4 mg Q4HP PRN IV 08/19/25 21:45 08/20/25 02:04 4 MG Docusate Sodium 100 mg BIDPRN PRN PO 08/19/25 21:45 Tamsulosin HCl 0.4 mg QPM PO 08/20/25 18:00 Ceftriaxone Sodium 50 ml @ 100 mls/hr DAILY@09 IV 08/20/25 09:00 08/20/25 08:18 100 MLS/HR Amlodipine Besylate 5 mg DAILY PO 08/20/25 10:00 08/20/25 08:21 5 MG Diagnostic Test (Pha) 1 strip ACHS 08/19/25 22:00 08/20/25 06:27 1 STRIP Insulin Human Regular ACHS SC 08/19/25 22:00 08/20/25 06:26 2 UNITS Dextrose 50 ml UD PRN IV 08/19/25 21:45 Morphine Sulfate 2 mg Q4HPRN PRN IV 08/19/25 21:45 08/20/25 10:37 2 MG Laboratory Results Laboratory Tests 08/20/25 04:32 Chemistry Test 08/19/25 17:04 08/20/25 04:32 Albumin 4.6 g/dL (3.2-4.8) 4.0 g/dL (3.2-4.8) Calcium Level 9.7 mg/dL (8.7-10.4) 8.4 mg/dL (8.7-10.4) L Magnesium Level 1.7 mg/dL (1.6-2.6) Total Protein 7.2 g/dL (5.7-8.2) 6.4 g/dL (5.7-8.2) Cardiac Markers Test 08/19/25 17:04 B-Type Natriuretic Peptide 36.62 pg/mL (0-100) LFT Test 08/19/25 17:04 08/20/25 04:32 Alanine Aminotransferase (ALT) 25 U/L (7-40) 21 U/L (7-40) Alkaline Phosphatase 49 U/L (46-116) 41 U/L (46-116) L Aspartate Amino Transferase (AST) 14 U/L (13-40) 15 U/L (13-40) Total Bilirubin 0.2 mg/dL (0.2-1.0) 0.3 mg/dL (0.2-1.0) HgA1c, TSH Test 08/19/25 17:44 Thyroid Stimulating Hormone (TSH) 2.94 uIU/mL (0.55-4.78) Urinalysis Test 08/19/25 18:50 Urine Color Yellow (Yellow) Urine Clarity Clear (Clear) Urine pH 5.5 (5.0-9.0) Urine Specific [place] 1.027 (1.001-1.035) Urine Protein Trace (Negative) H Urine Ketones Negative (Negative) Urine Blood 3+ /uL (Negative) H Urine Nitrite Negative (Negative) Urine Bilirubin Negative (Negative) Urine Urobilinogen Normal mg/dL (Negative) Urine Leukocyte Esterase 2+ /uL (Negative) Urine RBC 43 /hpf (0 - 3) Urine Microscopic WBC 26 /HPF (0-3) H Urine Squamous Epithelial Cells Few /hpf (<5) Urine Bacteria None seen /hpf (None Seen) Urine Mucus Few (None Seen) Urine Glucose 3+ mg/dL (Normal) H Labs and/or images reviewed: Labs reviewed by me, Image(s) reviewed by me Assessment/Plan Assessment/Plan Acute Right flank pain Dilaudid 2 mg IV q.6 p.r.n. Right mid ureteral calculus, 9 mm Right hydronephrosis urology consult by Dr. Arguello appreciated, planning for cystoscopy and ureteral stent placement and subsequent ESWL as an out pt Sepsis secondary to urinary tract infection: Acute urinary tract infection: Blood cultures urine cultures Rocephin Hypertension Diabetes Anxiety History of Recurrent kidney stones Time Spent 70 minutes Advanced care planning time 20 minutes Patient is full code Plan discussed with: Patient My Orders Orders - RAFFAELE VALDERRAMA MD Procedure Category Date Status Time Blood Culture SANTIAGO 08/20/25 Verified 11:00 Date of Service: Aug 20, 2025 Billing Provider: RAFFAELE VALDERRAMA MD Common Visit Codes: [id number] INP/OBS CARE(HIGH) RAFFAELE VALDERRAMA MD Aug 20, 2025 11:09
[2025-08-20 12:24] LABS: INR 1.09 (0.9-1.15); Partial Thromboplastin Time 25.6 SEC (24.5-34.5); Prothrombin Time 11.5 sec (9.3-11.8)
--- NOTE | 2025-08-20 15:49 | DVHNC2 ---
Procedure - OPERATIVE REPORT Pre-op. Diagnosis: Flank pain - RIGHT Hydronephrosis - RIGHT 9 mm right mid ureteral calculus Post-op. Diagnosis: same as preop diagnosis meatal stenosis Operation: Cystoscopy with retrograde pyelogram - RIGHT Cystoscopy with ureteral stent placement - [id number] - RIGHT cystoscopy with urethral dilation Anesthesia: General Indications: Patient presented with symptomatic right hydroureteronephrosis secondary to 9 mm mid ureteral calculus. The indications, risks, complications, alternatives and benefits of cystoscopy with ureteral stent placement are discussed with patient. All questions were encouraged and answered. Patient is aware of risks/complications including but not limited to infection, bleeding, persistent pain, possible ureteral injury requiring additional surgical management. Patient is also aware of alternatives of this procedure such as conservative management, or right nephrostomy tube placement. She elected to proceed. Details of Procedure: After obtaining the consent, patient is taken to OR suite and underwent general anesthesia. With the patient positioned in the lithotomy, the area of the genitalia prepped and draped in usual sterile fashion. Initial cystoscopy was hindered by meatal stenosis which required urethral dilation with Zulema sounds to 28 Alban[place] caliber. Next 21 [place] rigid cystoscope was used to inspect the urethra and the bladder.No FB, tumors or stones are seen in the bladder. The right ureteric orifice is cannulated with a 6Fr open ended catheter and retrograde pyelogram is performed. Under Fluoroscopic guidance, retrograde pyelogram was performed. 15 cc of 30% renogram was injected. There was A 9 mm right mid to upper ureteral filling defect consistent with findings of a ureteral calculus was noted. He had mild hydroureter And hydronephrosis. Next a guidewire is placed into the right ureter and a [address] ureteral stent is placed appropriately under fluoroscopy with proximal and distal curls confirmed under fluoroscopy and directional visualization. Bladder is decompressed with a Mann catheter and cystoscope is removed in entirety. Patient is awaken and moved to in stable condition. Specimens: None Complications: None Findings: Mild hydroureter, no ureteral filling defect or renal filling defect noted, no bladder lesion noted Notes: Patient will need to undergo right ureteroscopic laser lithotripsy as outpatient. Mann catheter to be left in x1 week for the management of meatal stenosis JAMIE MIN MD Aug 20, 2025 15:49
[2025-08-20] MEDS: CIPROFLOXACIN 400MG/200ML 200 ML IV ONE (16:17)
[2025-08-20] MEDS: IOHEXOL 300 MG/ML 100ML BOTTLE IJ ONE (16:38)
[2025-08-20] MEDS ORDERED: fentaNYL CITRATE 100 MCG/2 ML VL IV PRN (17:00)
[2025-08-20] MEDS ORDERED: HYDROmorphone HCL 2 MG/ML VL/or syr IV PRN (17:00)
[2025-08-20] MEDS ORDERED: NALOXONE HCL 0.4 MG/ML VIAL IV PRN (17:00)
[2025-08-20] MEDS ORDERED: hydrALAZINE HCL 20 MG/ML VL IV PRN (17:00)
[2025-08-20] MEDS ORDERED: FLUMAZENIL 0.1 MG/ML INJ 10ML MDV IV PRN (17:00)
[2025-08-20] MEDS ORDERED: ONDANSETRON HCL 4 MG/2 ML VIAL IV PRN (17:00)
[2025-08-20] MEDS ORDERED: LIDOCAINE 1% INJ PF 5ML AMP ONE (17:05)
[2025-08-20] MEDS ORDERED: PROPOFOL 10 MG/ML 20 ML IV ONE ×2 (17:05→17:37)
[2025-08-20] MEDS ORDERED: GLYCOPYRROLATE 0.2 MG/ML 1ML VIAL ONE (17:05)
[2025-08-20] MEDS ORDERED: KETOROLAC TROMETH 30 MG/ML 1ML VIAL ONE (17:05)
[2025-08-20] MEDS ORDERED: ONDANSETRON HCL 4 MG/2 ML VIAL ONE (17:05)
[2025-08-20] MEDS ORDERED: KETAMINE 50mg/ML 1ml syringe ONE (17:09)
[2025-08-20] MEDS ORDERED: hydrALAZINE HCL 20 MG/ML VL ONE (17:31)
[2025-08-20] MEDS ORDERED: fentaNYL CITRATE 100 MCG/2 ML VL ONE (17:43)
[2025-08-20] MEDS: HYDROmorphone HCL 2 MG/ML VL/or syr IV PRN (18:00)
[2025-08-20] MEDS: TAMSULOSIN HYDROCHLORIDE 0.4 MG CAP PO SCH (18:04)
--- NOTE | 2025-08-20 18:17 | DVH ---
C-ARM FLUOROSCOPY: PROCEDURE: Stent placement FLUOROSCOPY TIME: 64.8 seconds Air Kerma: 29.79 mgy FINDINGS: Spot intraoperative C arm radiographs demonstrating stent placement. IMPRESSION: 1. Please refer to surgical report for detailed findings. 2. Only 1 sheet received and that is the dose summary sheet
--- NOTE | 2025-08-20 20:05 | DVH ---
Exam: XY KUB ABDOMEN SINGLE VIEW Indication: STENT Comparison: CT CT AB PEL WO CON-NO ORAL OR IV on DOS: 08/19/25, ABDOMEN LIMITED on DOS: 10/22/21, CT AB PEL WITH ORAL CON ONLY on DOS: 05/08/21 Technique: Fluoroscopic radiographic views of the abdomen. Findings/ IMPRESSION: 1. Visualized upper portion of a wire projecting over the right abdomen. There is contrast opacification of the right renal collecting system demonstrating [id number] hydronephrosis.
[2025-08-21 00:58] VITALS: BP 157/94; PULSE 85; RESP 20; TEMP 97.5; O2SAT 99
[2025-08-21 05:00] VITALS: BP 135/87; PULSE 67; RESP 20; TEMP 98; O2SAT 94
[2025-08-21 09:00] VITALS: BP 129/80; PULSE 65; RESP 16; TEMP 98.5; O2SAT 96
--- NOTE | 2025-08-21 11:27 | DVHPN2 ---
Reviewed: Care Plan, H&P, Labs, Medications, Previous Orders, Radiology Changes from previous H/P or p: No Changes Objective Vitals Vital Signs Date Time Temp Pulse Resp B/P (MAP) Pulse Ox O2 Delivery O2 Flow Rate FiO2 08/21/25 09:00 98.5 65 16 129/80 (96) 96 98.5 08/21/25 08:05 Room Air* 0 21 Intake/Output Intake and Output 08/21/25 06:59 Intake Total 1250 ml Output Total 3350 ml Balance -2100 ml Intake Oral 900 ml IV Total 350 ml Output Urine Total 3350 ml Medications Current Medications Medications Dose Ordered Sig/Rivera Route Start Time Stop Time Status Last Admin Dose Admin Acetaminophen/ Hydrocodone Bitart 1 tab Q4HP PRN PO 08/19/25 21:45 08/21/25 03:54 1 TAB Ondansetron HCl 4 mg Q4HP PRN IV 08/19/25 21:45 08/20/25 02:04 4 MG Docusate Sodium 100 mg BIDPRN PRN PO 08/19/25 21:45 Tamsulosin HCl 0.4 mg QPM PO 08/20/25 18:00 08/20/25 18:04 0.4 MG Ceftriaxone Sodium 50 ml @ 100 mls/hr DAILY@09 IV 08/20/25 09:00 08/21/25 08:07 100 MLS/HR Amlodipine Besylate 5 mg DAILY PO 08/20/25 10:00 08/21/25 08:09 5 MG Diagnostic Test (Pha) 1 strip ACHS 08/19/25 22:00 08/21/25 06:18 1 STRIP Insulin Human Regular ACHS SC 08/19/25 22:00 08/21/25 06:18 3 UNITS Dextrose 50 ml UD PRN IV 08/19/25 21:45 Hydromorphone HCl 2 mg Q6HPRN PRN IV 08/20/25 11:15 08/21/25 06:19 2 MG Oxycodone HCl 10 mg ONCE PRN PO 08/20/25 17:00 UNV Laboratory Results Laboratory Tests 08/20/25 04:32 Coagulation Test 08/20/25 11:43 Prothrombin Time 11.5 sec (9.3-11.8) Prothrombin Time INR 1.09 (0.9-1.15) Activated Partial Thromboplast Time 25.6 SEC (24.5-34.5) Urinalysis Test 08/19/25 18:50 Urine Color Yellow (Yellow) Urine Clarity Clear (Clear) Urine pH 5.5 (5.0-9.0) Urine Specific [place] 1.027 (1.001-1.035) Urine Protein Trace (Negative) H Urine Ketones Negative (Negative) Urine Blood 3+ /uL (Negative) H Urine Nitrite Negative (Negative) Urine Bilirubin Negative (Negative) Urine Urobilinogen Normal mg/dL (Negative) Urine Leukocyte Esterase 2+ /uL (Negative) Urine RBC 43 /hpf (0 - 3) Urine Microscopic WBC 26 /HPF (0-3) H Urine Squamous Epithelial Cells Few /hpf (<5) Urine Bacteria None seen /hpf (None Seen) Urine Mucus Few (None Seen) Urine Glucose 3+ mg/dL (Normal) H Microbiology Microbiology Date/Time Source Procedure Growth Status 08/19/25 18:50 Voided Urine Urine Culture - Preliminary No growth Resulted Labs and/or images reviewed: Labs reviewed by me, Image(s) reviewed by me Assessment/Plan Assessment/Plan Acute Right flank pain Dilaudid 2 mg IV q.6 p.r.n. Right mid ureteral calculus, 9 mm Right hydronephrosis urology consult by Dr. Arguello appreciated, status post cystoscopy and right ureteral stent placement, scheduled for right ureteroscopic laser lithotripsy as an outpatient on 08/29/[address] Arguello Sepsis secondary to urinary tract infection: Acute urinary tract infection: Blood cultures pending, urine cultures negative, continue Rocephin Hypertension Diabetes Anxiety History of Recurrent kidney stones Time Spent 70 minutes Advanced care planning time 20 minutes Patient is full code Patient still in lot of pain and uncomfortable; increased Dilaudid to 2 mg p.o. q.4 hrs Plan discussed with: Patient Date of Service: Aug 21, 2025 Billing Provider: RAFFAELE VALDERRAMA MD Common Visit Codes: [id number] INP/OBS CARE(HIGH) RAFFAELE VALDERRAMA MD Aug 21, 2025 11:27
[2025-08-21] MEDS: SODIUM CHLORIDE 0.9% 1,000 ML IV SCH (11:52)
[2025-08-21] MEDS: HYDROmorphone HCL 2 MG/ML VL/or syr IV PRN (11:58)
[2025-08-21 13:00] VITALS: BP 142/98; PULSE 68; RESP 18; TEMP 98.6; O2SAT 96
[2025-08-21 17:00] VITALS: BP 136/77; PULSE 66; RESP 18; TEMP 98.6; O2SAT 95
[2025-08-21 20:39] VITALS: BP 152/93; PULSE 66; RESP 20; TEMP 97.8; O2SAT 96
[2025-08-21] MEDS: DOCUSATE SOD 100 MG CAP PO PRN (21:27)
[2025-08-22] VITALS (7 sets, daily range): BP systolic 138–144; BP diastolic 78–89; PULSE 61–71; RESP 18–20; TEMP 97.7–98.6; O2SAT 95–97
[2025-08-22 06:41] LABS: Hematocrit 33.0 % (41.0-53.0); Hemoglobin 11.4 g/dL (13.5-17.5); Mean Corpuscular Hemoglobin 30.1 pg (28.0-32.0); Mean Corpuscular Volume 86.9 fL (80.0-100.0); Nucleated Red Blood Cells % 0.1 %
[2025-08-22 06:57] LABS: Alanine Aminotransferase 23 U/L (7-40); Albumin 3.8 g/dL (3.2-4.8); Alkaline Phosphatase 42 U/L (46-116); Anion Gap 11 (5-15); BUN/Creatinine Ratio 14.6 (10.0-20.0); Bilirubin, Total 0.3 mg/dL (0.2-1.0); Blood Urea Nitrogen 14 mg/dL (9-23); Calcium 8.6 mg/dL (8.7-10.4); Carbon Dioxide 25 mmol/L (20-31); Chloride 108 mmol/L (98-107); Glucose 127 mg/dL (74-106); Potassium 3.9 mmol/L (3.5-5.1); Sodium 144 mmol/L (136-145); Total Protein 6.2 g/dL (5.7-8.2)
--- NOTE | 2025-08-22 11:13 | DVHPN2 ---
Reviewed: Care Plan, H&P, Labs, Medications, Previous Orders, Radiology Changes from previous H/P or p: No Changes Objective Vitals Vital Signs Date Time Temp Pulse Resp B/P (MAP) Pulse Ox O2 Delivery O2 Flow Rate FiO2 08/22/25 09:34 66 18 143/86 08/22/25 09:00 97.8 95 97.8 08/21/25 20:00 Room Air* 0 21 Intake/Output Intake and Output 08/22/25 07:00 Intake Total 2650 ml Output Total 2100 ml Balance 550 ml Intake Oral 1700 ml IV Total 950 ml Output Urine Total 2100 ml Medications Current Medications Medications Dose Ordered Sig/Rivera Route Start Time Stop Time Status Last Admin Dose Admin Acetaminophen/ Hydrocodone Bitart 1 tab Q4HP PRN PO 08/19/25 21:45 08/22/25 06:48 1 TAB Ondansetron HCl 4 mg Q4HP PRN IV 08/19/25 21:45 08/20/25 02:04 4 MG Docusate Sodium 100 mg BIDPRN PRN PO 08/19/25 21:45 08/22/25 08:34 100 MG Tamsulosin HCl 0.4 mg QPM PO 08/20/25 18:00 08/21/25 16:10 0.4 MG Ceftriaxone Sodium 50 ml @ 100 mls/hr DAILY@09 IV 08/20/25 09:00 08/22/25 08:34 100 MLS/HR Amlodipine Besylate 5 mg DAILY PO 08/20/25 10:00 08/22/25 08:34 5 MG Diagnostic Test (Pha) 1 strip ACHS 08/19/25 22:00 08/22/25 06:37 1 STRIP Insulin Human Regular ACHS SC 08/19/25 22:00 08/21/25 21:34 2 UNITS Dextrose 50 ml UD PRN IV 08/19/25 21:45 Oxycodone HCl 10 mg ONCE PRN PO 08/20/25 17:00 UNV Sodium Chloride 1,000 ml @ 150 mls/hr Q6H40M IV 08/21/25 11:30 08/22/25 07:41 150 MLS/HR Hydromorphone HCl 2 mg Q4HPRN PRN IV 08/21/25 11:30 08/22/25 09:34 2 MG Laboratory Results Laboratory Tests 08/22/25 04:53 08/22/25 06:05 Chemistry Test 08/22/25 04:53 Albumin 3.8 g/dL (3.2-4.8) Calcium Level 8.6 mg/dL (8.7-10.4) L Total Protein 6.2 g/dL (5.7-8.2) LFT Test 08/22/25 04:53 Alanine Aminotransferase (ALT) 23 U/L (7-40) Alkaline Phosphatase 42 U/L (46-116) L Aspartate Amino Transferase (AST) 16 U/L (13-40) Total Bilirubin 0.3 mg/dL (0.2-1.0) Urinalysis Test 08/19/25 18:50 Urine Color Yellow (Yellow) Urine Clarity Clear (Clear) Urine pH 5.5 (5.0-9.0) Urine Specific [place] 1.027 (1.001-1.035) Urine Protein Trace (Negative) H Urine Ketones Negative (Negative) Urine Blood 3+ /uL (Negative) H Urine Nitrite Negative (Negative) Urine Bilirubin Negative (Negative) Urine Urobilinogen Normal mg/dL (Negative) Urine Leukocyte Esterase 2+ /uL (Negative) Urine RBC 43 /hpf (0 - 3) Urine Microscopic WBC 26 /HPF (0-3) H Urine Squamous Epithelial Cells Few /hpf (<5) Urine Bacteria None seen /hpf (None Seen) Urine Mucus Few (None Seen) Urine Glucose 3+ mg/dL (Normal) H Microbiology Microbiology Date/Time Source Procedure Growth Status 08/20/25 11:43 Blood Blood Culture - Preliminary NO GROWTH AFTER 24 HOURS OF INCUBATION. Resulted 08/19/25 18:50 Voided Urine Urine Culture - Final Complete Labs and/or images reviewed: Labs reviewed by me, Image(s) reviewed by me Assessment/Plan Assessment/Plan Acute Right flank pain Dilaudid 2 mg IV q.6 p.r.n. Right mid ureteral calculus, 9 mm Right hydronephrosis urology consult by Dr. Arguello appreciated, status post cystoscopy and right ureteral stent placement, scheduled for right ureteroscopic laser lithotripsy as an outpatient on 08/29/[address] Arguello Sepsis secondary to urinary tract infection: Acute urinary tract infection: Blood cultures pending, urine cultures negative, continue Rocephin Hypertension Diabetes Anxiety History of Recurrent kidney stones Time Spent 70 minutes Advanced care planning time 20 minutes Patient is full code Patient still in lot of pain and uncomfortable; increased Dilaudid to 2 mg p.o. q.4 hrs, will request a urology Dr. Arguello to re-evaluate Plan discussed with: Patient My Orders Orders - RAFFAELE VALDERRAMA MD Procedure Category Date Status Time Sodium Chloride 0.9% PHA 08/21/25 In Process 11:30 Hydromorphone PHA 08/21/25 In Process Injection (Dilaudid 11:30 Date of Service: Aug 22, 2025 Billing Provider: RAFFAELE VALDERRAMA MD Common Visit Codes: [id number] INP/OBS CARE(HIGH) RAFFAELE VALDERRAMA MD Aug 22, 2025 11:13
--- NOTE | 2025-08-22 11:53 | DVHPN2 ---
Progress Note - Dictate Date Seen: Aug 22, 2025 Has the PT tested + for MRSA If YES, has PT been informed?: No Medical Necessity Reason Pt with a Central, PICC or Fol: Yes Medical Necessity Reason Postop day #2 status post cystoscopy with right ureteral stent placement and urethral dilation with Mann placement Subjective Patient requiring continued hospital care due to right flank pain. He is schedfuled for OUTPT lithotripy next week, but he is unable to be discharged. vital signs Vital Sign Date Time Temp Pulse Resp B/P (MAP) Pulse Ox O2 Delivery O2 Flow Rate FiO2 08/22/25 09:34 66 18 143/86 08/22/25 09:00 97.8 95 97.8 08/22/25 08:00 Room Air* 0 21 Total Intake and Output 08/21/25 08/21/25 08/22/25 15:00 23:00 07:00 Intake Total 50 ml 1700 ml 900 ml Output Total 1000 ml 1100 ml Balance 50 ml 700 ml -200 ml medications Current Medications Medications Dose Ordered Sig/Rivera Route Start Time Stop Time Status Last Admin Dose Admin Acetaminophen/ Hydrocodone Bitart 1 tab Q4HP PRN PO 08/19/25 21:45 08/22/25 06:48 1 TAB Ondansetron HCl 4 mg Q4HP PRN IV 08/19/25 21:45 08/20/25 02:04 4 MG Docusate Sodium 100 mg BIDPRN PRN PO 08/19/25 21:45 08/22/25 08:34 100 MG Tamsulosin HCl 0.4 mg QPM PO 08/20/25 18:00 08/21/25 16:10 0.4 MG Ceftriaxone Sodium 50 ml @ 100 mls/hr DAILY@09 IV 08/20/25 09:00 08/22/25 08:34 100 MLS/HR Amlodipine Besylate 5 mg DAILY PO 08/20/25 10:00 08/22/25 08:34 5 MG Diagnostic Test (Pha) 1 strip ACHS 08/19/25 22:00 08/22/25 06:37 1 STRIP Insulin Human Regular ACHS SC 08/19/25 22:00 08/21/25 21:34 2 UNITS Dextrose 50 ml UD PRN IV 08/19/25 21:45 Oxycodone HCl 10 mg ONCE PRN PO 08/20/25 17:00 UNV Sodium Chloride 1,000 ml @ 150 mls/hr Q6H40M IV 08/21/25 11:30 08/22/25 07:41 150 MLS/HR Hydromorphone HCl 2 mg Q4HPRN PRN IV 08/21/25 11:30 08/22/25 09:34 2 MG objective KUB orderred laboratory and microbiology Laboratory Tests 08/22/25 06:05 08/22/25 04:53 Test 08/22/25 04:53 Range/Units Serum Glucose 127 H 74-106 mg/dL Problem List Right flank pain Right ureteral stone, 9 mm Right ureteral stent USD Mann in situ Assessment/Plan Right ESWL vs. URSLL tomorrow. NPO after midnite Plan discussed with: Patient, Other JAMIE MIN MD Aug 22, 2025 11:53
--- NOTE | 2025-08-22 14:29 | DVH ---
Date: 08/22/2025 01:18 PM Examination: XY KUB ABDOMEN SINGLE VIEW History: right ureteral stone Comparison: XY KUB ABDOMEN SINGLE VIEW on DOS: 08/20/25 TECHNIQUE: Frontal views of the abdomen was obtained. FINDINGS: Bowel gas pattern is unremarkable. Right ureteral stent in place. Pigtail opened up proximally incompletely visualized in the pelvis. The lung bases are unremarkable. No acute osseous abnormality identified. IMPRESSION: 1. Nonobstructive bowel gas pattern. 2. Right ureteral stent in place. Pigtail opened up proximally and not in [id number] on this study distally.
[2025-08-22] MEDS: ACETAMINOPHEN IV 1000 MG/100ML (10MG/ML) IV ONE (15:41)
[2025-08-23] VITALS (12 sets, daily range): BP systolic 130–148; BP diastolic 78–94; PULSE 64–99; RESP 12–18; TEMP 97.1–98.7; O2SAT 91–99
--- NOTE | 2025-08-23 11:14 | DVHPN2 ---
Reviewed: Care Plan, H&P, Labs, Medications, Previous Orders, Radiology Changes from previous H/P or p: No Changes Objective Vitals Vital Signs Date Time Temp Pulse Resp B/P (MAP) Pulse Ox O2 Delivery O2 Flow Rate FiO2 08/23/25 10:50 63 93 138/80 08/23/25 09:00 97.8 91 97.8 08/23/25 07:54 Room Air* 0 21 Intake/Output Intake and Output 08/23/25 07:00 Intake Total 2450 ml Output Total 6050 ml Balance -3600 ml Intake Oral 2400 ml IV Total 50 ml Output Urine Total 6050 ml Medications Current Medications Medications Dose Ordered Sig/Rivera Route Start Time Stop Time Status Last Admin Dose Admin Acetaminophen/ Hydrocodone Bitart 1 tab Q4HP PRN PO 08/19/25 21:45 08/22/25 06:48 1 TAB Ondansetron HCl 4 mg Q4HP PRN IV 08/19/25 21:45 08/20/25 02:04 4 MG Docusate Sodium 100 mg BIDPRN PRN PO 08/19/25 21:45 08/22/25 08:34 100 MG Tamsulosin HCl 0.4 mg QPM PO 08/20/25 18:00 08/22/25 17:10 0.4 MG Ceftriaxone Sodium 50 ml @ 100 mls/hr DAILY@09 IV 08/20/25 09:00 08/23/25 10:16 100 MLS/HR Amlodipine Besylate 5 mg DAILY PO 08/20/25 10:00 08/22/25 08:34 5 MG Diagnostic Test (Pha) 1 strip ACHS 08/19/25 22:00 08/23/25 06:04 1 STRIP Insulin Human Regular ACHS SC 08/19/25 22:00 08/22/25 22:00 2 UNITS Dextrose 50 ml UD PRN IV 08/19/25 21:45 Oxycodone HCl 10 mg ONCE PRN PO 08/20/25 17:00 UNV Sodium Chloride 1,000 ml @ 150 mls/hr Q6H40M IV 08/21/25 11:30 08/23/25 10:19 150 MLS/HR Hydromorphone HCl 2 mg Q4HPRN PRN IV 08/21/25 11:30 08/23/25 10:20 2 MG Laboratory Results Laboratory Tests 08/22/25 04:53 08/22/25 06:05 Urinalysis Test 08/19/25 18:50 Urine Color Yellow (Yellow) Urine Clarity Clear (Clear) Urine pH 5.5 (5.0-9.0) Urine Specific [place] 1.027 (1.001-1.035) Urine Protein Trace (Negative) H Urine Ketones Negative (Negative) Urine Blood 3+ /uL (Negative) H Urine Nitrite Negative (Negative) Urine Bilirubin Negative (Negative) Urine Urobilinogen Normal mg/dL (Negative) Urine Leukocyte Esterase 2+ /uL (Negative) Urine RBC 43 /hpf (0 - 3) Urine Microscopic WBC 26 /HPF (0-3) H Urine Squamous Epithelial Cells Few /hpf (<5) Urine Bacteria None seen /hpf (None Seen) Urine Mucus Few (None Seen) Urine Glucose 3+ mg/dL (Normal) H Microbiology Microbiology Date/Time Source Procedure Growth Status 08/20/25 11:43 Blood Blood Culture - Preliminary NO GROWTH AFTER 48 HOURS OF INCUBATION. Resulted 08/19/25 18:50 Voided Urine Urine Culture - Final Complete Labs and/or images reviewed: Labs reviewed by me, Image(s) reviewed by me Assessment/Plan Assessment/Plan Acute Right flank pain Dilaudid 2 mg IV q.6 p.r.n. Right mid ureteral calculus, 9 mm Right hydronephrosis urology consult by Dr. Arguello appreciated, status post cystoscopy and right ureteral stent placement, scheduled for right ureteroscopic laser lithotripsy as an outpatient on 08/29/[address] Arguello Sepsis secondary to urinary tract infection: Acute urinary tract infection: Blood cultures pending, urine cultures negative, continue Rocephin Hypertension Diabetes Anxiety History of Recurrent kidney stones Time Spent 70 minutes Advanced care planning time 20 minutes Patient is full code Patient is scheduled for ESWL by Dr. Arguello today Plan discussed with: Patient My Orders Orders - RAFFAELE VALDERRAMA MD Procedure Category Date Status Time Npo After Midnight GENARO 08/22/25 In Process 11:45 Npo (Nothing By DIET 08/23/25 Transmitted Mouth) Diet Breakfast Communication Order ORDERS 08/22/25 Transmitted 11:45 Date of Service: Aug 23, 2025 Billing Provider: RAFFAELE VALDERRAMA MD Common Visit Codes: [id number] INP/OBS CARE(HIGH) RAFFAELE VALDERRAMA MD Aug 23, 2025 11:14
[2025-08-23] MEDS ORDERED: KETOROLAC TROMETH 30 MG/ML 1ML VIAL ONE (11:55)
[2025-08-23] MEDS ORDERED: LIDOCAINE 2% (LOCAL ANESTH.) PF 5ml SDV ONE (11:55)
[2025-08-23] MEDS ORDERED: ONDANSETRON HCL 4 MG/2 ML VIAL ONE (11:57)
[2025-08-23] MEDS ORDERED: GLYCOPYRROLATE 0.2 MG/ML 1ML VIAL ONE (11:57)
[2025-08-23] MEDS ORDERED: KETAMINE 50mg/ML 1ml syringe ONE (11:57)
[2025-08-23] MEDS ORDERED: PROPOFOL 10 MG/ML 20 ML IV ONE (11:57)
[2025-08-23] MEDS: CIPROFLOXACIN 400MG/200ML 200 ML IV ONE (12:11)
--- NOTE | 2025-08-23 12:52 | DVHNC2 ---
Procedure - OPERATIVE REPORT Pre-op. Diagnosis: Rightt mid ureteral stone, 9 mm Right ureteral stent, in situ Right ureteral stent, in situ Post-op. Diagnosis: Same as pre-op diagnosis Operation: Extracorporeal Shockwave Lithotripsy Anesthesia: General Indications: Patient was found to have symptomatic 9 mm right ureteral stone. He underwent right ureteral stent placement on 08/20/25. He continues to require hospital care for pain. Patient is here to undergo ESWL therapy. Informed Consent: The procedure was explained to the patient. It's risks include but not limited to infection, bleeding, and damage to the kidney. Patient fully understood and signed the consent. Other options such as watchful waiting, Ureteroscopy, Percutaneous surgery and open surgery were also discussed. Details of Procedure: Under satisfactory anesthesia, the patient was positioned on the lithotripsy table. Using fluoroscopy the stone was localized. Starting at low energy levels, shockwave treatment was commenced. The energy level was gradually increased and stone was fragmented. Once the treatment was completed, patient was then taken off the lithotripsy table and sent to recovery room in stable condition. Specimens: None Complications: None Findings: Stone Laterality: right Stone Location: mid ureteral stone, 9 mm Shocks Delivered: 3000 Max Power settin-9 Fragmentation Quality: Well Notes: KUB in 1-2 weeks. Cystoscopy with stent removal when stone free. JAMIE MIN MD Aug 23, 2025 12:52
[2025-08-23] MEDS ORDERED: fentaNYL CITRATE 100 MCG/2 ML VL ONE (13:03)
[2025-08-23] MEDS ORDERED: hydrALAZINE HCL 20 MG/ML VL IV PRN (13:30)
[2025-08-23] MEDS ORDERED: ONDANSETRON HCL 4 MG/2 ML VIAL IV PRN (13:30)
[2025-08-23] MEDS ORDERED: fentaNYL CITRATE 100 MCG/2 ML VL IV PRN (13:30)
[2025-08-23] MEDS ORDERED: NALOXONE HCL 0.4 MG/ML VIAL IV PRN (13:30)
[2025-08-23] MEDS ORDERED: FLUMAZENIL 0.1 MG/ML INJ 10ML MDV IV PRN (13:30)
[2025-08-23] MEDS: HYDROmorphone HCL 2 MG/ML VL/or syr IV PRN (13:37)
[2025-08-24] VITALS (7 sets, daily range): BP systolic 147–166; BP diastolic 83–99; PULSE 63–91; RESP 18–20; TEMP 97.4–98.8; O2SAT 92–96
--- NOTE | 2025-08-24 10:00 | DVHPN2 ---
Reviewed: Care Plan, H&P, Labs, Medications, Previous Orders, Radiology Changes from previous H/P or p: No Changes Objective Vitals Vital Signs Date Time Temp Pulse Resp B/P (MAP) Pulse Ox O2 Delivery O2 Flow Rate FiO2 08/24/25 06:53 68 20 172/90 08/24/25 04:47 97.4 92 97.4 08/23/25 20:00 Room Air* 0 21 Intake/Output Intake and Output 08/24/25 07:00 Intake Total 1000 ml Output Total 3510 ml Balance -2510 ml Intake Oral 700 ml IV Total 300 ml Output Urine Total 3510 ml Medications Current Medications Medications Dose Ordered Sig/Rivera Route Start Time Stop Time Status Last Admin Dose Admin Acetaminophen/ Hydrocodone Bitart 1 tab Q4HP PRN PO 08/19/25 21:45 08/24/25 08:51 1 TAB Ondansetron HCl 4 mg Q4HP PRN IV 08/19/25 21:45 08/20/25 02:04 4 MG Docusate Sodium 100 mg BIDPRN PRN PO 08/19/25 21:45 08/23/25 17:05 100 MG Tamsulosin HCl 0.4 mg QPM PO 08/20/25 18:00 08/23/25 16:53 0.4 MG Ceftriaxone Sodium 50 ml @ 100 mls/hr DAILY@09 IV 08/20/25 09:00 08/23/25 10:16 100 MLS/HR Amlodipine Besylate 5 mg DAILY PO 08/20/25 10:00 08/23/25 14:51 5 MG Diagnostic Test (Pha) 1 strip ACHS 08/19/25 22:00 08/24/25 06:54 1 STRIP Insulin Human Regular ACHS SC 08/19/25 22:00 08/24/25 06:59 2 UNITS Dextrose 50 ml UD PRN IV 08/19/25 21:45 Oxycodone HCl 10 mg ONCE PRN PO 08/20/25 17:00 UNV Sodium Chloride 1,000 ml @ 150 mls/hr Q6H40M IV 08/21/25 11:30 08/24/25 02:49 150 MLS/HR Hydromorphone HCl 2 mg Q4HPRN PRN IV 08/21/25 11:30 08/24/25 06:53 2 MG Lactulose 30 ml BID PO 08/24/25 10:00 Laboratory Results Laboratory Tests 08/22/25 04:53 08/22/25 06:05 Urinalysis Test 08/19/25 18:50 Urine Color Yellow (Yellow) Urine Clarity Clear (Clear) Urine pH 5.5 (5.0-9.0) Urine Specific [place] 1.027 (1.001-1.035) Urine Protein Trace (Negative) H Urine Ketones Negative (Negative) Urine Blood 3+ /uL (Negative) H Urine Nitrite Negative (Negative) Urine Bilirubin Negative (Negative) Urine Urobilinogen Normal mg/dL (Negative) Urine Leukocyte Esterase 2+ /uL (Negative) Urine RBC 43 /hpf (0 - 3) Urine Microscopic WBC 26 /HPF (0-3) H Urine Squamous Epithelial Cells Few /hpf (<5) Urine Bacteria None seen /hpf (None Seen) Urine Mucus Few (None Seen) Urine Glucose 3+ mg/dL (Normal) H Microbiology Microbiology Date/Time Source Procedure Growth Status 08/20/25 11:43 Blood Blood Culture - Preliminary NO GROWTH AFTER 72 HOURS OF INCUBATION. Resulted 08/19/25 18:50 Voided Urine Urine Culture - Final Complete Labs and/or images reviewed: Labs reviewed by me, Image(s) reviewed by me Assessment/Plan Assessment/Plan Acute Right flank pain Dilaudid 2 mg IV q.6 p.r.n. Right mid ureteral calculus, 9 mm Right hydronephrosis urology consult by Dr. Arguello appreciated, status post cystoscopy and right ureteral stent placement, status post ESWL on 08/23/2025 by Sepsis secondary to urinary tract infection: Acute urinary tract infection: Blood cultures pending, urine cultures negative, continue Rocephin Hypertension Diabetes Anxiety History of Recurrent kidney stones Time Spent 50 minutes Advanced care planning time 20 minutes Patient is full code Still complaining of moderate pain of the right flank area Plan discussed with: Patient Date of Service: Aug 24, 2025 Billing Provider: RAFFAELE VALDERRAMA MD Common Visit Codes: [id number] INP/OBS CARE(HIGH) RAFFAELE VALDERRAMA MD Aug 24, 2025 10:00
[2025-08-24] MEDS: LACTULOSE 20Gm/30ML SOLN PO SCH (10:26)
[2025-08-25] VITALS (8 sets, daily range): BP systolic 150–178; BP diastolic 90–103; PULSE 56–73; RESP 16–20; TEMP 97.3–98.6; O2SAT 95–96
[2025-08-25 07:29] LABS: Hematocrit 35.1 % (41.0-53.0); Hemoglobin 12.1 g/dL (13.5-17.5); Mean Corpuscular Hemoglobin 30.2 pg (28.0-32.0); Mean Corpuscular Volume 87.6 fL (80.0-100.0); Nucleated Red Blood Cells % 0.2 %
[2025-08-25 08:26] LABS: Alanine Aminotransferase 25 U/L (7-40); Albumin 3.8 g/dL (3.2-4.8); BUN/Creatinine Ratio 9.9 (10.0-20.0); Blood Urea Nitrogen 9 mg/dL (9-23); Carbon Dioxide 22 mmol/L (20-31); Total Protein 6.5 g/dL (5.7-8.2)
[2025-08-25 08:29] LABS: Alkaline Phosphatase 42 U/L (46-116); Bilirubin, Total 0.3 mg/dL (0.2-1.0); Calcium 8.6 mg/dL (8.7-10.4); Glucose 128 mg/dL (74-106)
[2025-08-25 08:48] LABS: Anion Gap 12 (5-15); Chloride 109 mmol/L (98-107); Potassium 4.0 mmol/L (3.5-5.1); Sodium 143 mmol/L (136-145)
--- NOTE | 2025-08-25 11:17 | DVHPN2 ---
Reviewed: Care Plan, H&P, Labs, Medications, Previous Orders, Radiology Changes from previous H/P or p: No Changes Objective Vitals Vital Signs Date Time Temp Pulse Resp B/P (MAP) Pulse Ox O2 Delivery O2 Flow Rate FiO2 08/25/25 09:27 65 18 169/86 08/25/25 05:00 97.3 95 97.3 08/24/25 20:00 Room Air* 0 21 Intake/Output Intake and Output 08/25/25 07:00 Intake Total 5666 ml Output Total 6650 ml Balance -984 ml Intake Oral 2616 ml IV Total 3050 ml Output Urine Total 6650 ml Medications Current Medications Medications Dose Ordered Sig/Rivera Route Start Time Stop Time Status Last Admin Dose Admin Acetaminophen/ Hydrocodone Bitart 1 tab Q4HP PRN PO 08/19/25 21:45 08/24/25 17:26 1 TAB Ondansetron HCl 4 mg Q4HP PRN IV 08/19/25 21:45 08/20/25 02:04 4 MG Docusate Sodium 100 mg BIDPRN PRN PO 08/19/25 21:45 08/23/25 17:05 100 MG Tamsulosin HCl 0.4 mg QPM PO 08/20/25 18:00 08/24/25 17:25 0.4 MG Ceftriaxone Sodium 50 ml @ 100 mls/hr DAILY@09 IV 08/20/25 09:00 08/25/25 09:24 100 MLS/HR Amlodipine Besylate 5 mg DAILY PO 08/20/25 10:00 08/24/25 10:25 5 MG Diagnostic Test (Pha) 1 strip ACHS 08/19/25 22:00 08/25/25 06:34 1 STRIP Insulin Human Regular ACHS SC 08/19/25 22:00 08/25/25 06:35 2 UNITS Dextrose 50 ml UD PRN IV 08/19/25 21:45 Oxycodone HCl 10 mg ONCE PRN PO 08/20/25 17:00 UNV Sodium Chloride 1,000 ml @ 150 mls/hr Q6H40M IV 08/21/25 11:30 08/25/25 04:40 150 MLS/HR Hydromorphone HCl 2 mg Q4HPRN PRN IV 08/21/25 11:30 08/25/25 09:27 2 MG Lactulose 30 ml BID PO 08/24/25 10:00 08/25/25 09:24 30 ML Laboratory Results Laboratory Tests 08/25/25 06:13 Chemistry Test 08/25/25 06:13 Albumin 3.8 g/dL (3.2-4.8) Calcium Level 8.6 mg/dL (8.7-10.4) L Total Protein 6.5 g/dL (5.7-8.2) LFT Test 08/25/25 06:13 Alanine Aminotransferase (ALT) 25 U/L (7-40) Alkaline Phosphatase 42 U/L (46-116) L Aspartate Amino Transferase (AST) 23 U/L (13-40) Total Bilirubin 0.3 mg/dL (0.2-1.0) Urinalysis Test 08/19/25 18:50 Urine Color Yellow (Yellow) Urine Clarity Clear (Clear) Urine pH 5.5 (5.0-9.0) Urine Specific [place] 1.027 (1.001-1.035) Urine Protein Trace (Negative) H Urine Ketones Negative (Negative) Urine Blood 3+ /uL (Negative) H Urine Nitrite Negative (Negative) Urine Bilirubin Negative (Negative) Urine Urobilinogen Normal mg/dL (Negative) Urine Leukocyte Esterase 2+ /uL (Negative) Urine RBC 43 /hpf (0 - 3) Urine Microscopic WBC 26 /HPF (0-3) H Urine Squamous Epithelial Cells Few /hpf (<5) Urine Bacteria None seen /hpf (None Seen) Urine Mucus Few (None Seen) Urine Glucose 3+ mg/dL (Normal) H Microbiology Microbiology Date/Time Source Procedure Growth Status 08/20/25 11:43 Blood Blood Culture - Preliminary NO GROWTH AFTER 72 HOURS OF INCUBATION. Resulted 08/19/25 18:50 Voided Urine Urine Culture - Final Complete Labs and/or images reviewed: Labs reviewed by me, Image(s) reviewed by me Assessment/Plan Assessment/Plan Acute Right flank pain Dilaudid 2 mg IV q.6 p.r.n. Right mid ureteral calculus, 9 mm Right hydronephrosis urology consult by Dr. Arguello appreciated, status post cystoscopy and right ureteral stent placement, status post ESWL on 08/23/2025 by Sepsis secondary to urinary tract infection: Acute urinary tract infection: Blood cultures pending, urine cultures negative, continue Rocephin Hypertension Diabetes Anxiety History of Recurrent kidney stones Time Spent 50 minutes Advanced care planning time 20 minutes Patient is full code Still complaining of moderate pain of the right flank area; repeat CT abdomen pelvis without contrast ordered, awaiting re-evaluation by Urology Dr. Arguello Plan discussed with: Patient Date of Service: Aug 25, 2025 Billing Provider: RAFFAELE VALDERRAMA MD Common Visit Codes: [id number] INP/OBS CARE(HIGH) RAFFAELE VALDERRAMA MD Aug 25, 2025 11:17
[2025-08-25] MEDS: LISINOPRIL 20 MG TAB PO ONE (12:15)
--- NOTE | 2025-08-25 12:32 | DVH ---
CLINICAL HISTORY: Severe right flank pain status post right ureteral stent TECHNIQUE: CT of the abdomen and pelvis was performed without intravenous contrast. This exam was performed according to our departmental dose optimization program. Up-to-date CT equipment and radiation dose reduction techniques are utilized as appropriate. CTDI: 22.89 DLP: 1336.38 WID: COMPARISON: CT CT AB PEL WO CON-NO ORAL OR IV on DOS: 08/19/25 FINDINGS: Lower Thorax: Lung bases are clear. Normal-sized heart with trace pericardial fluid. Liver and Biliary system: Mild hepatomegaly with the right lobe of the liver measuring 23 cm craniocaudal. No definite hepatic lesion. The gallbladder is normal caliber. There is no biliary ductal dilatation. Spleen: Mild splenomegaly. Adrenal Glands and Kidneys: Normal adrenal glands. There is a new right-sided double-J ureteral stent in place. A persistent 5.9 mm calculus is seen within the mid to distal right ureter. Near-complete Resolution of right hydronephrosis. No left hydronephrosis. Pancreas and Retroperitoneum: Unremarkable. Aorta and Major Vessels: Aortoiliac vessels are normal in caliber with mild calcified atherosclerotic plaque. Bowel, Mesentery and Peritoneal space: Normal caliber small and large bowel. Moderate retained stool in the colon. Normal appendix. There is no free air or fluid collection. Pelvis: There is a Mann catheter in the urinary bladder with nondependent gas in the bladder presumably related to instrumentation. Prostate contains dystrophic calcifications and is normal-sized. There is no pelvic lymphadenopathy. Mild bladder wall thickening. Abdominal wall and Osseous Structures: There is a fat containing umbilical hernia with moderate size of the hernia sac in the anterior abdominal wall. There are small fat containing bilateral inguinal hernias. Multilevel lower thoracic and lumbar spondylosis. Interbody spacer at L4-L5. Straightening of the lumbar lordosis and thoracic kyphosis. No destructive osseous lesion. IMPRESSION: 1. Placement of a double-J right-sided ureteral stent with near-complete resolution of right hydronephrosis. 2. Persistent 5.9 mm calculus in the mid to distal right ureter. 3. Mild bladder wall thickening which may be reactive in the setting of a Mann catheter. Correlate with urinalysis if there is clinical concern for cystitis. 4. Mild hepatosplenomegaly.
[2025-08-25] MEDS: IOHEXOL 300 MG/ML 100ML BOTTLE IJ ONE (12:58)
[2025-08-25] MEDS: HYDROmorphone HCL 2 MG/ML VL/or syr ONE (12:59)
[2025-08-26] VITALS (8 sets, daily range): BP systolic 132–164; BP diastolic 84–97; PULSE 58–72; RESP 17–20; TEMP 97.8–98.6; O2SAT 94–98
[2025-08-26] MEDS: LISINOPRIL 20 MG TAB PO SCH (11:25)
--- NOTE | 2025-08-26 12:59 | DVHPN2 ---
Reviewed: Care Plan, H&P, Labs, Medications, Previous Orders, Radiology Changes from previous H/P or p: No Changes Objective Vitals Vital Signs Date Time Temp Pulse Resp B/P (MAP) Pulse Ox O2 Delivery O2 Flow Rate FiO2 08/26/25 11:25 161/89 08/26/25 10:03 64 18 08/26/25 08:56 98.4 94 98.4 08/25/25 20:00 Room Air* 0 21 Intake/Output Intake and Output 08/26/25 07:00 Intake Total 3773 ml Output Total 4550 ml Balance -777 ml Intake Oral 3773 ml Output Urine Total 4550 ml # Bowel Movements 1 Medications Current Medications Medications Dose Ordered Sig/Rivera Route Start Time Stop Time Status Last Admin Dose Admin Acetaminophen/ Hydrocodone Bitart 1 tab Q4HP PRN PO 08/19/25 21:45 08/24/25 17:26 1 TAB Ondansetron HCl 4 mg Q4HP PRN IV 08/19/25 21:45 08/20/25 02:04 4 MG Docusate Sodium 100 mg BIDPRN PRN PO 08/19/25 21:45 08/23/25 17:05 100 MG Tamsulosin HCl 0.4 mg QPM PO 08/20/25 18:00 08/25/25 18:02 0.4 MG Ceftriaxone Sodium 50 ml @ 100 mls/hr DAILY@09 IV 08/20/25 09:00 08/26/25 10:02 100 MLS/HR Amlodipine Besylate 5 mg DAILY PO 08/20/25 10:00 08/26/25 11:25 5 MG Diagnostic Test (Pha) 1 strip ACHS 08/19/25 22:00 08/26/25 11:30 1 STRIP Insulin Human Regular ACHS SC 08/19/25 22:00 08/26/25 06:30 2 UNITS Dextrose 50 ml UD PRN IV 08/19/25 21:45 Oxycodone HCl 10 mg ONCE PRN PO 08/20/25 17:00 UNV Sodium Chloride 1,000 ml @ 150 mls/hr Q6H40M IV 08/21/25 11:30 08/26/25 11:30 150 MLS/HR Hydromorphone HCl 2 mg Q4HPRN PRN IV 08/21/25 11:30 08/26/25 10:03 2 MG Lactulose 30 ml BID PO 08/24/25 10:00 08/26/25 10:00 30 ML Clonidine HCl 0.2 mg Q6HP PRN PO 08/25/25 11:45 Lisinopril 40 mg DAILY PO 08/26/25 10:00 08/26/25 11:25 40 MG Laboratory Results Laboratory Tests 08/25/25 06:13 Urinalysis Test 08/19/25 18:50 Urine Color Yellow (Yellow) Urine Clarity Clear (Clear) Urine pH 5.5 (5.0-9.0) Urine Specific [place] 1.027 (1.001-1.035) Urine Protein Trace (Negative) H Urine Ketones Negative (Negative) Urine Blood 3+ /uL (Negative) H Urine Nitrite Negative (Negative) Urine Bilirubin Negative (Negative) Urine Urobilinogen Normal mg/dL (Negative) Urine Leukocyte Esterase 2+ /uL (Negative) Urine RBC 43 /hpf (0 - 3) Urine Microscopic WBC 26 /HPF (0-3) H Urine Squamous Epithelial Cells Few /hpf (<5) Urine Bacteria None seen /hpf (None Seen) Urine Mucus Few (None Seen) Urine Glucose 3+ mg/dL (Normal) H Microbiology Microbiology Date/Time Source Procedure Growth Status 08/20/25 11:43 Blood Blood Culture - Final NO GROWTH AFTER 5 DAYS OF INCUBATION. Complete 08/19/25 18:50 Voided Urine Urine Culture - Final Complete Labs and/or images reviewed: Labs reviewed by me, Image(s) reviewed by me Assessment/Plan Assessment/Plan Acute Right flank pain Dilaudid 2 mg IV q.6 p.r.n. Right mid ureteral calculus, 9 mm Right hydronephrosis urology consult by Dr. Arguello appreciated, status post cystoscopy and right ureteral stent placement, status post ESWL on 08/23/2025 by Sepsis secondary to urinary tract infection: Acute urinary tract infection: Blood cultures pending, urine cultures negative, continue Rocephin Hypertension Diabetes Anxiety History of Recurrent kidney stones Time Spent 50 minutes Advanced care planning time 20 minutes Patient is full code Still complaining of moderate pain of the right flank area; repeat CT abdomen pelvis without contrast done on 08/25/2025 shows persisting 5.9 mm distal right ureteral stone , will request Urology Dr. Arugello to re-evaluate Plan discussed with: Patient Date of Service: Aug 26, 2025 Billing Provider: RAFFAELE VALDERRAMA MD Common Visit Codes: [id number] INP/OBS CARE(HIGH) RAFFAELE VALDERRAMA MD Aug 26, 2025 12:59
--- NOTE | 2025-08-26 13:23 | DVHPN2 ---
Progress Note - Dictate Date Seen: Aug 26, 2025 Has the PT tested + for MRSA If YES, has PT been informed?: No Medical Necessity Reason Pt with a Central, PICC or Fol: Yes Medical Necessity Reason Pateint remains inpatient for pain control. CT Scan repeated (08/25/25): 6 mm right mid ureteral stone, right ureteral stent Subjective Patient requiring continued hospital care due to right flank pain. vital signs Vital Sign Date Time Temp Pulse Resp B/P (MAP) Pulse Ox O2 Delivery O2 Flow Rate FiO2 08/26/25 11: 161/89 08/26/25 10:03 64 18 08/26/25 08:56 98.4 94 98.4 08/25/25 20:00 Room Air* 0 21 Total Intake and Output 08/25/25 08/25/25 08/26/25 15:00 23:00 07:00 Intake Total 180 ml 2448 ml 1145 ml Output Total 1900 ml 2650 ml Balance 180 ml 548 ml -1505 ml medications Current Medications Medications Dose Ordered Sig/Rivera Route Start Time Stop Time Status Last Admin Dose Admin Acetaminophen/ Hydrocodone Bitart 1 tab Q4HP PRN PO 08/19/25 21:45 08/24/25 17:26 1 TAB Ondansetron HCl 4 mg Q4HP PRN IV 08/19/25 21:45 08/20/25 02:04 4 MG Docusate Sodium 100 mg BIDPRN PRN PO 08/19/25 21:45 08/23/25 17:05 100 MG Tamsulosin HCl 0.4 mg QPM PO 08/20/25 18:00 08/25/25 18:02 0.4 MG Ceftriaxone Sodium 50 ml @ 100 mls/hr DAILY@09 IV 08/20/25 09:00 08/26/25 10:02 100 MLS/HR Amlodipine Besylate 5 mg DAILY PO 08/20/25 10:00 08/26/25 11:25 5 MG Diagnostic Test (Pha) 1 strip ACHS 08/19/25 22:00 08/26/25 11:30 1 STRIP Insulin Human Regular ACHS SC 08/19/25 22:00 08/26/25 13:15 3 UNITS Dextrose 50 ml UD PRN IV 08/19/25 21:45 Oxycodone HCl 10 mg ONCE PRN PO 08/20/25 17:00 UNV Sodium Chloride 1,000 ml @ 150 mls/hr Q6H40M IV 08/21/25 11:30 08/26/25 11:30 150 MLS/HR Hydromorphone HCl 2 mg Q4HPRN PRN IV 08/21/25 11:30 08/26/25 10:03 2 MG Lactulose 30 ml BID PO 08/24/25 10:00 08/26/25 10:00 30 ML Clonidine HCl 0.2 mg Q6HP PRN PO 08/25/25 11:45 Lisinopril 40 mg DAILY PO 08/26/25 10:00 08/26/25 11:[address] Scan report reviewed. laboratory and microbiology Laboratory Tests 08/25/25 06:13 Test 08/25/25 06:13 Range/Units Serum Glucose 128 H 74-106 mg/dL Problem List Right flank pain Right ureteral stone, 9 mm Right ureteral stent USD Mann in situ Assessment/Plan URSLL tomorrow. NPO after midnite Plan discussed with: Patient, Other JAMIE MIN MD Aug 26, 2025 13:22
[2025-08-27] VITALS (8 sets, daily range): BP systolic 113–149; BP diastolic 64–81; PULSE 62–78; RESP 12–20; TEMP 98.1–98.4; O2SAT 94–98
[2025-08-27] MEDS: CIPROFLOXACIN 400MG/200ML 200 ML IV ONE (08:50)
[2025-08-27] MEDS: IOHEXOL 300 MG/ML 100ML BOTTLE IJ ONE (09:34)
[2025-08-27] MEDS ORDERED: MIDAZOLAM HCL 2MG/2ML 2ml VIAL (1mg/ml) ONE (09:45)
[2025-08-27] MEDS ORDERED: fentaNYL CITRATE 100 MCG/2 ML VL ONE (09:45)
[2025-08-27] MEDS ORDERED: MEPERIDINE HCL (25 MG/ML) 1ML VIAL ONE (09:45)
--- NOTE | 2025-08-27 10:13 | DVHPN2 ---
Reviewed: Care Plan, H&P, Labs, Medications, Previous Orders, Radiology Changes from previous H/P or p: No Changes Objective Vitals Vital Signs Date Time Temp Pulse Resp B/P (MAP) Pulse Ox O2 Delivery O2 Flow Rate FiO2 08/27/25 07:59 98.1 62 18 113/65 (81) 94 98.1 08/26/25 20:00 Room Air* 0 21 Intake/Output Intake and Output 08/27/25 07:00 Intake Total 2015 ml Output Total 3125 ml Balance -1110 ml Intake Oral 1815 ml IV Total 200 ml Output Urine Total 3125 ml # Bowel Movements 1 Medications Current Medications Medications Dose Ordered Sig/Rivera Route Start Time Stop Time Status Last Admin Dose Admin Acetaminophen/ Hydrocodone Bitart 1 tab Q4HP PRN PO 08/19/25 21:45 08/24/25 17:26 1 TAB Ondansetron HCl 4 mg Q4HP PRN IV 08/19/25 21:45 08/20/25 02:04 4 MG Docusate Sodium 100 mg BIDPRN PRN PO 08/19/25 21:45 08/23/25 17:05 100 MG Tamsulosin HCl 0.4 mg QPM PO 08/20/25 18:00 08/26/25 18:30 0.4 MG Ceftriaxone Sodium 50 ml @ 100 mls/hr DAILY@09 IV 08/20/25 09:00 08/26/25 10:02 100 MLS/HR Amlodipine Besylate 5 mg DAILY PO 08/20/25 10:00 08/26/25 11:25 5 MG Diagnostic Test (Pha) 1 strip ACHS 08/19/25 22:00 08/27/25 06:27 1 STRIP Insulin Human Regular ACHS SC 08/19/25 22:00 08/26/25 21:34 2 UNITS Dextrose 50 ml UD PRN IV 08/19/25 21:45 Oxycodone HCl 10 mg ONCE PRN PO 08/20/25 17:00 UNV Sodium Chloride 1,000 ml @ 150 mls/hr Q6H40M IV 08/21/25 11:30 08/27/25 01:16 150 MLS/HR Hydromorphone HCl 2 mg Q4HPRN PRN IV 08/21/25 11:30 08/27/25 06:45 2 MG Lactulose 30 ml BID PO 08/24/25 10:00 08/26/25 10:00 30 ML Clonidine HCl 0.2 mg Q6HP PRN PO 08/25/25 11:45 08/26/25 21:35 0.2 MG Lisinopril 40 mg DAILY PO 08/26/25 10:00 08/26/25 11:25 40 MG Laboratory Results Laboratory Tests 08/25/25 06:13 Urinalysis Test 08/19/25 18:50 Urine Color Yellow (Yellow) Urine Clarity Clear (Clear) Urine pH 5.5 (5.0-9.0) Urine Specific [place] 1.027 (1.001-1.035) Urine Protein Trace (Negative) H Urine Ketones Negative (Negative) Urine Blood 3+ /uL (Negative) H Urine Nitrite Negative (Negative) Urine Bilirubin Negative (Negative) Urine Urobilinogen Normal mg/dL (Negative) Urine Leukocyte Esterase 2+ /uL (Negative) Urine RBC 43 /hpf (0 - 3) Urine Microscopic WBC 26 /HPF (0-3) H Urine Squamous Epithelial Cells Few /hpf (<5) Urine Bacteria None seen /hpf (None Seen) Urine Mucus Few (None Seen) Urine Glucose 3+ mg/dL (Normal) H Microbiology Microbiology Date/Time Source Procedure Growth Status 08/20/25 11:43 Blood Blood Culture - Final NO GROWTH AFTER 5 DAYS OF INCUBATION. Complete 08/19/25 18:50 Voided Urine Urine Culture - Final Complete Labs and/or images reviewed: Labs reviewed by me, Image(s) reviewed by me Assessment/Plan Assessment/Plan Acute Right flank pain Dilaudid 2 mg IV q.6 p.r.n. Right mid ureteral calculus, 9 mm Right hydronephrosis urology consult by Dr. Arguello appreciated, status post cystoscopy and right ureteral stent placement, status post ESWL on 08/23/2025 by Sepsis secondary to urinary tract infection: Acute urinary tract infection: Blood cultures pending, urine cultures negative, continue Rocephin Hypertension Diabetes Anxiety History of Recurrent kidney stones Time Spent 50 minutes Advanced care planning time 20 minutes Patient is full code Still complaining of moderate pain of the right flank area; repeat CT abdomen pelvis without contrast done on 08/25/2025 shows persisting 5.9 mm distal right ureteral stone , patient getting procedure today by Plan discussed with: Patient Date of Service: Aug 27, 2025 Billing Provider: RAFFAELE VALDERRAMA MD Common Visit Codes: [id number] INP/OBS CARE(HIGH) RAFFAELE VALDERRAMA MD Aug 27, 2025 10:12
[2025-08-27] MEDS ORDERED: ONDANSETRON HCL 4 MG/2 ML VIAL ONE (10:22)
[2025-08-27] MEDS ORDERED: PROPOFOL 10 MG/ML 20 ML IV ONE (10:22)
[2025-08-27] MEDS ORDERED: hydrALAZINE HCL 20 MG/ML VL IV PRN (10:30)
[2025-08-27] MEDS ORDERED: ONDANSETRON HCL 4 MG/2 ML VIAL IV PRN (10:30)
--- NOTE | 2025-08-27 11:03 | DVHNC2 ---
Procedure - OPERATIVE REPORT Pre-op. Diagnosis: Right proximal/mid ureteral calculus, 6 mm, impacted Right ureteral stent, in situ Post-op. Diagnosis: Same as pre-op diagnosis Operation: Right ureteroscopy/pyeloscopy, laser lithotripsy with renal evacuation Cystoscopy with right ureteral stent exchange Anesthesia: General Indications: Patient with kidney stone s/p lithotripsy and indwelling ureteral stent. Patient has persistent 6 mm calculus in the mid right ureter per CT scan. The indications, risks, complications, alternatives and benefits were discussed. All questions were encouraged and answered. Patient is aware of risks/complications including but not limited to infection, bleeding, persistent pain, possible ureteral injury/ureteral stricture requiring additional surgical management, urethral injury, urethral stricture and meatal stenosis. Details of Procedure: After obtaining the consent, patient was taken to OR suite and underwent general anesthesia. Preop antibiotic was given. Timeout was performed and deemed to be correct. With the patient positioned in the lithotomy, the area of the genitalia prepped and draped in usual sterile fashion. 22 F Cystoscope was used to access the urethra and bladder. The right ureteral stent was grasped and removed. A sensor tip guide wire was advanced through the scope into the left ureter all the way to the collecting system under fluoroscopic control. I advanced Vacuum suction ureteral access sheet over the working wire all the way to the proximal ureter under fluoroscopy control, then the inner sheet and the working wire was removed. The Digital flexible ureteroscope was advanced through the access sheet. The stone was found to be impacted into the ureteral wall as expected. Now using a 200 micron laser fiber the stone was blasted into small fragments and suctioned out while in dusting mode. Ureteroscope was then removed . Small lateral perforation of the mid ureter was noted when the stone was impacted. Therefore I elected do replaced the stent. A guidewire was placed into the renal pelvis and the ureteral catheter/ sheath are removed. Cystoscope was backloaded over the guidewire and placed into the bladder. A six [place] by 24 cm polaris loop ureteral stent was placed over the guidewire in proper position. Bladder was decompressed and cystoscope was removed in entirety. Patient was placed in supine position and awakened. He was transferred to in stable condition. Specimens: renal stone fragments Complications: None JAMIE MIN MD Aug 27, 2025 11:03
[2025-08-27] MEDS: MORPHINE SULFATE 4 MG/ML SYR/VIAL IV PRN (11:24)
[2025-08-27] MEDS: OXYBUTYNIN CHL 5 MG TAB ONE (11:43)
[2025-08-27] MEDS: OXYBUTYNIN CHL 5 MG TAB PO ONE (11:43)
--- NOTE | 2025-08-27 11:46 | DVH ---
Indication: RIGHT URETEROSCOPIC LASER LITHOTRIPSY Technique: XY KUB ABDOMEN SINGLE VIEWXY Comparison: None FINDINGS/IMPRESSION: Intraoperative fluoroscopic images for right ureteral stent placement. The proximal pigtail is partially formed on the provided images.
--- NOTE | 2025-08-27 11:53 | DVH ---
C-ARM FLUOROSCOPY: PROCEDURE: Right laser lithotripsy FLUOROSCOPY TIME: 44.7 sec DAP: 17.20 mgy FINDINGS: Spot intraoperative C arm radiographs demonstrating right laser lithotripsy.. IMPRESSION: Please refer to surgical report for detailed findings.
[2025-08-27] MEDS: HYDROmorphone HCL 2 MG/ML VL/or syr IV PRN (12:58)
[2025-08-27] MEDS: ACCU-CHEK COMFORT CURVE STRIP VI ONE (12:59)
[2025-08-27] MEDS: PHENAZOPYRIDINE HCL 100 MG TAB PO PRN (13:01)
[2025-08-27] MEDS: ACETAMINOPHEN IV 1000 MG/100ML (10MG/ML) IV ONE (13:02)
[2025-08-27] MEDS: ACETAMINOPHEN IV 100 ML IV ONE (13:05)
[2025-08-27] MEDS ORDERED: LIDOCAINE 2% JELLY 11ml (GLYDO) ONE (13:08)
[2025-08-27] MEDS: MIDAZOLAM HCL 2MG/2ML 2ml VIAL (1mg/ml) IV PRN (13:11)
--- NOTE | 2025-08-27 14:53 | DVH ---
Date: 08/27/2025 02:31 PM Examination: XY KUB ABDOMEN SINGLE VIEW History: stent placement Comparison: XY KUB ABDOMEN SINGLE VIEW on DOS: 08/27/25, CT CT AB PEL WO CON-NO ORAL OR IV on DOS: 08/25/25, XY KUB ABDOMEN SINGLE VIEW on DOS: 08/22/25, XY KUB ABDOMEN SINGLE VIEW on DOS: 08/20/25, CT CT AB PEL WO CON-NO ORAL OR IV on DOS: 08/19/25 TECHNIQUE: Frontal views of the abdomen was obtained. FINDINGS: Bowel gas pattern is unremarkable. The lung bases are unremarkable. No acute osseous abnormality identified. IMPRESSION: Nonobstructive bowel gas pattern. Right double-J ureteral stent
[2025-08-27] MEDS: HYDROmorphone HCL 2 MG/ML VL/or syr ONE (15:55)
[2025-08-27] MEDS: LIDOCAINE 2% TOPICAL JELLY 5 ML URJT TOP ONE (15:55)
[2025-08-28] VITALS (10 sets, daily range): BP systolic 112–156; BP diastolic 60–89; PULSE 60–86; RESP 17–20; TEMP 97.9–98.3; O2SAT 94–96
--- NOTE | 2025-08-28 10:43 | DVHPN2 ---
Reviewed: Care Plan, H&P, Labs, Medications, Previous Orders, Radiology Changes from previous H/P or p: No Changes Objective Vitals Vital Signs Date Time Temp Pulse Resp B/P (MAP) Pulse Ox O2 Delivery O2 Flow Rate FiO2 08/28/25 09:54 171/91 08/28/25 09:53 79 17 08/28/25 09:02 98.3 95 98.3 08/28/25 08:00 Room Air* 0 21 Intake/Output Intake and Output 08/28/25 07:00 Intake Total 1115 ml Output Total 4300 ml Balance -3185 ml Intake Oral 915 ml IV Total 200 ml Output Urine Total 4300 ml Medications Current Medications Medications Dose Ordered Sig/Rivera Route Start Time Stop Time Status Last Admin Dose Admin Acetaminophen/ Hydrocodone Bitart 1 tab Q4HP PRN PO 08/19/25 21:45 08/24/25 17:26 1 TAB Ondansetron HCl 4 mg Q4HP PRN IV 08/19/25 21:45 08/28/25 10:00 4 MG Docusate Sodium 100 mg BIDPRN PRN PO 08/19/25 21:45 08/27/25 19:16 100 MG Tamsulosin HCl 0.4 mg QPM PO 08/20/25 18:00 08/27/25 19:16 0.4 MG Ceftriaxone Sodium 50 ml @ 100 mls/hr DAILY@09 IV 08/20/25 09:00 08/28/25 09:53 100 MLS/HR Amlodipine Besylate 5 mg DAILY PO 08/20/25 10:00 08/28/25 09:53 5 MG Diagnostic Test (Pha) 1 strip ACHS 08/19/25 22:00 08/28/25 06:12 1 STRIP Insulin Human Regular ACHS SC 08/19/25 22:00 08/28/25 06:14 4 UNITS Dextrose 50 ml UD PRN IV 08/19/25 21:45 Oxycodone HCl 10 mg ONCE PRN PO 08/20/25 17:00 UNV Sodium Chloride 1,000 ml @ 150 mls/hr Q6H40M IV 08/21/25 11:30 08/28/25 09:54 150 MLS/HR Hydromorphone HCl 2 mg Q4HPRN PRN IV 08/21/25 11:30 08/28/25 09:53 2 MG Lactulose 30 ml BID PO 08/24/25 10:00 08/28/25 09:53 30 ML Clonidine HCl 0.2 mg Q6HP PRN PO 08/25/25 11:45 08/26/25 21:35 0.2 MG Lisinopril 40 mg DAILY PO 08/26/25 10:00 08/28/25 09:54 40 MG Phenazopyridine HCl 100 mg TID PRN PO 08/27/25 13:00 08/27/25 13:01 100 MG Laboratory Results Laboratory Tests 08/25/25 06:13 Urinalysis Test 08/19/25 18:50 Urine Color Yellow (Yellow) Urine Clarity Clear (Clear) Urine pH 5.5 (5.0-9.0) Urine Specific [place] 1.027 (1.001-1.035) Urine Protein Trace (Negative) H Urine Ketones Negative (Negative) Urine Blood 3+ /uL (Negative) H Urine Nitrite Negative (Negative) Urine Bilirubin Negative (Negative) Urine Urobilinogen Normal mg/dL (Negative) Urine Leukocyte Esterase 2+ /uL (Negative) Urine RBC 43 /hpf (0 - 3) Urine Microscopic WBC 26 /HPF (0-3) H Urine Squamous Epithelial Cells Few /hpf (<5) Urine Bacteria None seen /hpf (None Seen) Urine Mucus Few (None Seen) Urine Glucose 3+ mg/dL (Normal) H Microbiology Microbiology Date/Time Source Procedure Growth Status 08/20/25 11:43 Blood Blood Culture - Final NO GROWTH AFTER 5 DAYS OF INCUBATION. Complete 08/19/25 18:50 Voided Urine Urine Culture - Final Complete Labs and/or images reviewed: Labs reviewed by me, Image(s) reviewed by me Assessment/Plan Assessment/Plan Acute Right flank pain Dilaudid 2 mg IV q.6 p.r.n. Right mid ureteral calculus, 9 mm Right hydronephrosis urology consult by Dr. Arguello appreciated, status post cystoscopy and right ureteral stent placement, status post ESWL on 08/23/2025 by , Status post Right ureteroscopy/pyeloscopy, laser lithotripsy with renal evacuation, Cystoscopy with right ureteral stent exchange Sepsis secondary to urinary tract infection: Acute urinary tract infection: Blood cultures pending, urine cultures negative, continue Rocephin Hypertension Diabetes Anxiety History of Recurrent kidney stones Plan discussed with: Patient Date of Service: Aug 28, 2025 Billing Provider: RAFFAELE VALDERRAMA MD Common Visit Codes: [id number] INP/OBS CARE(HIGH) RAFFAELE VALDERRAMA MD Aug 28, 2025 10:43
[2025-08-28] MEDS: HYDROmorphone HCL 2 MG/ML VL/or syr IV PRN (12:53)
[2025-08-29] VITALS (7 sets, daily range): BP systolic 119–165; BP diastolic 69–90; PULSE 56–69; RESP 17–19; TEMP 97.9–98.6; O2SAT 94–100
--- NOTE | 2025-08-29 09:37 | DVH ---
Exam: CT CT AB PEL WO CON-NO ORAL OR IV History: ureteral stone, pain Comparison Study: CT CT AB PEL WO CON-NO ORAL OR IV on DOS: 08/25/25, CT CT AB PEL WO CON-NO ORAL OR IV on DOS: 08/19/25, CT AB PEL WITH ORAL CON ONLY on DOS: 05/08/21, ABDOMEN LIMITED on DOS: 05/08/21, CT ABD PELVIS WO CONTRAST on DOS: 05/07/21 Technique: Multidetector spiral CT of the abdomen was performed from lung bases to pubic symphysis. Imaging was performed without IV contrast. Axial, coronal and sagittal multiplanar reformats were obtained from the axial data set by the technologist. Radiation Dose : 1. Abdomen/Pelvis: CTDIvol 21.99 mGy, DLP 1353.91 mGy*cm. Findings: Evaluation of solid organs is limited due to lack of intravenous contrast use. Lung Bases: No acute or significant lung base finding. Normal heart size. No pleural or pericardial effusion. Liver: The liver is normal in size. No focal lesions. Gallbladder and Biliary Tree: Unremarkable Spleen: Unremarkable Pancreas: The pancreas is grossly normal in appearance. Adrenal Glands: Unremarkable Kidneys: Double-J ureteric stent on the right. Previously noted proximal to mid right ureteric calculus is no longer seen. No hydronephrosis. Nonobstructing 3 mm right lower pole renal calculus. Bladder: Mann catheter in-situ. Bowel: The stomach is grossly normal in appearance. Small bowel and colon are normal in caliber and distribution. The appendix is not visualized; however, no secondary findings of acute appendicitis identified. Ascites: Absent Lymphadenopathy: No mesenteric, retroperitoneal or periportal lymphadenopathy. Abdominal Wall and Mesentery: Unremarkable. Vasculature: The visualized abdominal aorta is normal in size and caliber. Evaluation of abdominal and pelvic vessels is limited due to lack of intravenous contrast. Pelvic Organs: Unremarkable Musculoskeletal: No aggressive focal bony lesions, acute fractures or dislocation. IMPRESSION: Previously noted right ureteral stone is no longer seen. Radiation optimization: All CT scans at this facility use at least one of these dose optimization techniques: automated exposure control mA and/or kV adjustment per patient size (includes targeted exams where dose is matched to clinical indication) or iterative reconstruction.
--- NOTE | 2025-08-29 10:31 | DVHPN2 ---
Reviewed: Care Plan, H&P, Labs, Medications, Previous Orders, Radiology Changes from previous H/P or p: No Changes Objective Vitals Vital Signs Date Time Temp Pulse Resp B/P (MAP) Pulse Ox O2 Delivery O2 Flow Rate FiO2 08/29/25 10:22 119/74 08/29/25 08:00 Room Air* 0 21 08/29/25 07:10 66 18 08/29/25 05:46 97.9 94 97.9 Intake/Output Intake and Output 08/29/25 07:00 Intake Total 3790 ml Balance 3790 ml Intake Oral 1790 ml IV Total 2000 ml # Voids 5 # Bowel Movements 1 Medications Current Medications Medications Dose Ordered Sig/Rivera Route Start Time Stop Time Status Last Admin Dose Admin Ondansetron HCl 4 mg Q4HP PRN IV 08/19/25 21:45 08/28/25 10:00 4 MG Docusate Sodium 100 mg BIDPRN PRN PO 08/19/25 21:45 08/27/25 19:16 100 MG Tamsulosin HCl 0.4 mg QPM PO 08/20/25 18:00 08/28/25 16:28 0.4 MG Ceftriaxone Sodium 50 ml @ 100 mls/hr DAILY@09 IV 08/20/25 09:00 08/29/25 10:21 100 MLS/HR Amlodipine Besylate 5 mg DAILY PO 08/20/25 10:00 08/29/25 10:22 5 MG Diagnostic Test (Pha) 1 strip ACHS 08/19/25 22:00 08/29/25 06:40 1 STRIP Insulin Human Regular ACHS SC 08/19/25 22:00 08/29/25 06:32 2 UNITS Dextrose 50 ml UD PRN IV 08/19/25 21:45 Oxycodone HCl 10 mg ONCE PRN PO 08/20/25 17:00 UNV Sodium Chloride 1,000 ml @ 150 mls/hr Q6H40M IV 08/21/25 11:30 08/29/25 06:10 150 MLS/HR Lactulose 30 ml BID PO 08/24/25 10:00 08/28/25 09:53 30 ML Clonidine HCl 0.2 mg Q6HP PRN PO 08/25/25 11:45 08/28/25 14:20 0.2 MG Lisinopril 40 mg DAILY PO 08/26/25 10:00 08/29/25 10:22 40 MG Phenazopyridine HCl 100 mg TID PRN PO 08/27/25 13:00 08/27/25 13:01 100 MG Hydromorphone HCl 2 mg Q3HR PRN IV 08/28/25 10:45 08/29/25 06:28 2 MG Laboratory Results Laboratory Tests 08/25/25 06:13 Urinalysis Test 08/19/25 18:50 Urine Color Yellow (Yellow) Urine Clarity Clear (Clear) Urine pH 5.5 (5.0-9.0) Urine Specific [place] 1.027 (1.001-1.035) Urine Protein Trace (Negative) H Urine Ketones Negative (Negative) Urine Blood 3+ /uL (Negative) H Urine Nitrite Negative (Negative) Urine Bilirubin Negative (Negative) Urine Urobilinogen Normal mg/dL (Negative) Urine Leukocyte Esterase 2+ /uL (Negative) Urine RBC 43 /hpf (0 - 3) Urine Microscopic WBC 26 /HPF (0-3) H Urine Squamous Epithelial Cells Few /hpf (<5) Urine Bacteria None seen /hpf (None Seen) Urine Mucus Few (None Seen) Urine Glucose 3+ mg/dL (Normal) H Microbiology Microbiology Date/Time Source Procedure Growth Status 08/20/25 11:43 Blood Blood Culture - Final NO GROWTH AFTER 5 DAYS OF INCUBATION. Complete 08/19/25 18:50 Voided Urine Urine Culture - Final Complete Labs and/or images reviewed: Labs reviewed by me, Image(s) reviewed by me Assessment/Plan Assessment/Plan Acute Right flank pain Dilaudid 2 mg IV q.6 p.r.n. Right mid ureteral calculus, 9 mm Right hydronephrosis urology consult by Dr. Arguello appreciated, status post cystoscopy and right ureteral stent placement, status post ESWL on 08/23/2025 by , Status post Right ureteroscopy/pyeloscopy, laser lithotripsy with renal evacuation, Cystoscopy with right ureteral stent exchange on 08-27-25 Sepsis secondary to urinary tract infection: Acute urinary tract infection: Blood cultures pending, urine cultures negative, continue Rocephin, blood cultures negative, urine cultures negative Hypertension Diabetes Anxiety History of Recurrent kidney stones Plan discussed with: Patient My Orders Orders - RAFFAELE VALDERRAMA MD Procedure Category Date Status Time Hydromorphone PHA 08/28/25 In Process Injection (Dilaudid 10:45 Stone Analysis Urinary LAB 08/28/25 In Process 10:53 Date of Service: Aug 29, 2025 Billing Provider: RAFFAELE VALDERRAMA MD Common Visit Codes: [id number] INP/OBS CARE(HIGH) RAFFAELE VALDERRAMA MD Aug 29, 2025 10:31
[2025-08-30 01:00] VITALS: BP_SYST 121; BP_SYST 146; BP_DIAS 77; BP_DIAS 92; PULSE 69; PULSE 76; RESP 17; RESP 18; TEMP 98.2; TEMP 98.4; O2SAT 95; O2SAT 96
[2025-08-30 05:00] VITALS: BP 132/88; PULSE 67; RESP 18; TEMP 97.7; O2SAT 93
[2025-08-30 09:00] VITALS: BP 130/82; PULSE 69; RESP 18; TEMP 98.2; O2SAT 95
--- NOTE | 2025-08-30 10:08 | DVHPN2 ---
Reviewed: Care Plan, H&P, Labs, Medications, Previous Orders, Radiology Changes from previous H/P or p: No Changes Objective Vitals Vital Signs Date Time Temp Pulse Resp B/P (MAP) Pulse Ox O2 Delivery O2 Flow Rate FiO2 08/30/25 09:55 130/82 08/30/25 09:54 95 18 08/30/25 08:00 Room Air* 0 21 08/30/25 05:00 97.7 93 97.7 Intake/Output Intake and Output 08/30/25 07:00 Intake Total 5050 ml Output Total 4900 ml Balance 150 ml Intake Oral 3000 ml IV Total 2050 ml Output Urine Total 4900 ml Medications Current Medications Medications Dose Ordered Sig/Rivera Route Start Time Stop Time Status Last Admin Dose Admin Ondansetron HCl 4 mg Q4HP PRN IV 08/19/25 21:45 08/28/25 10:00 4 MG Docusate Sodium 100 mg BIDPRN PRN PO 08/19/25 21:45 08/27/25 19:16 100 MG Tamsulosin HCl 0.4 mg QPM PO 08/20/25 18:00 08/29/25 17:43 0.4 MG Ceftriaxone Sodium 50 ml @ 100 mls/hr DAILY@09 IV 08/20/25 09:00 08/30/25 09:52 100 MLS/HR Amlodipine Besylate 5 mg DAILY PO 08/20/25 10:00 08/30/25 09:55 5 MG Diagnostic Test (Pha) 1 strip ACHS 08/19/25 22:00 08/29/25 21:37 1 STRIP Insulin Human Regular ACHS SC 08/19/25 22:00 08/29/25 22:08 3 UNITS Dextrose 50 ml UD PRN IV 08/19/25 21:45 Oxycodone HCl 10 mg ONCE PRN PO 08/20/25 17:00 UNV Sodium Chloride 1,000 ml @ 150 mls/hr Q6H40M IV 08/21/25 11:30 08/30/25 02:10 150 MLS/HR Lactulose 30 ml BID PO 08/24/25 10:00 08/28/25 09:53 30 ML Clonidine HCl 0.2 mg Q6HP PRN PO 08/25/25 11:45 08/28/25 14:20 0.2 MG Lisinopril 40 mg DAILY PO 08/26/25 10:00 08/30/25 09:54 40 MG Phenazopyridine HCl 100 mg TID PRN PO 08/27/25 13:00 08/27/25 13:01 100 MG Hydromorphone HCl 2 mg Q3HR PRN IV 08/28/25 10:45 08/30/25 09:54 2 MG Laboratory Results Laboratory Tests 08/25/25 06:13 Urinalysis Test 08/19/25 18:50 Urine Color Yellow (Yellow) Urine Clarity Clear (Clear) Urine pH 5.5 (5.0-9.0) Urine Specific [place] 1.027 (1.001-1.035) Urine Protein Trace (Negative) H Urine Ketones Negative (Negative) Urine Blood 3+ /uL (Negative) H Urine Nitrite Negative (Negative) Urine Bilirubin Negative (Negative) Urine Urobilinogen Normal mg/dL (Negative) Urine Leukocyte Esterase 2+ /uL (Negative) Urine RBC 43 /hpf (0 - 3) Urine Microscopic WBC 26 /HPF (0-3) H Urine Squamous Epithelial Cells Few /hpf (<5) Urine Bacteria None seen /hpf (None Seen) Urine Mucus Few (None Seen) Urine Glucose 3+ mg/dL (Normal) H Microbiology Microbiology Date/Time Source Procedure Growth Status 08/20/25 11:43 Blood Blood Culture - Final NO GROWTH AFTER 5 DAYS OF INCUBATION. Complete 08/19/25 18:50 Voided Urine Urine Culture - Final Complete Labs and/or images reviewed: Labs reviewed by me, Image(s) reviewed by me Assessment/Plan Assessment/Plan Acute Right flank pain Dilaudid 2 mg IV q.6 p.r.n. Right mid ureteral calculus, 9 mm Right hydronephrosis urology consult by Dr. Arguello appreciated, status post cystoscopy and right ureteral stent placement, status post ESWL on 08/23/2025 by , Status post Right ureteroscopy/pyeloscopy, laser lithotripsy with renal evacuation, Cystoscopy with right ureteral stent exchange on 08-27-[address] abdomen pelvis without contrast 08/29/2025 shows there is no right ureteral stone Sepsis secondary to urinary tract infection: Acute urinary tract infection: Blood cultures pending, urine cultures negative, continue Rocephin, blood cultures negative, urine cultures negative Hypertension Depression Bipolar: Continue home medication Seroquel, trazodone, buspirone, lamotrigine, hydroxyzine Diabetes: Insulin sliding scale Anxiety History of Recurrent kidney stones Physical therapy ordered Mary [phone] bedside [facility] and physical therapy and the plan is acceptable to the patient and his Advanced care planning time 20 minutes Plan discussed with: Patient My Orders Orders - RAFFAELE VALDERRAMA MD Procedure Category Date Status Time Pt Request For Service PT 08/30/25 Logged 09:42 Covid19 Antigen Bere LAB 08/30/25 Logged Date of Service: Aug 30, 2025 Billing Provider: RAFFAELE VALDERRAMA MD Common Visit Codes: [id number] INP/OBS CARE(HIGH) Secondary Visit Codes: [id number] CARE PLAN 30 MINUTES RAFFAELE VALDERRAMA MD Aug 30, 2025 10:08
[2025-08-30 13:00] VITALS: BP 153/93; PULSE 74; RESP 16; TEMP 97.7; O2SAT 96
[2025-08-30 16:00] VITALS: BP 133/84; PULSE 65; RESP 18; TEMP 97.8; O2SAT 96
--- NOTE | 2025-08-30 16:37 | DVHPN2 ---
Progress Note - Dictate Date Seen: Aug 30, 2025 Has the PT tested + for MRSA If YES, has PT been informed?: No Medical Necessity Reason Pt with a Central, PICC or Fol: Yes The following are medically ne: Mann Catheter Medical Necessity Reason Postop day 3. Status post right ureteroscope epic laser lithotripsy and stent placement. Postop day 7. Status post right ESWL Postop day 10. Status post right ureteral stent placement Subjective Patient requiring continued hospital care due to right flank pain. vital signs Vital Sign Date Time Temp Pulse Resp B/P (MAP) Pulse Ox O2 Delivery O2 Flow Rate FiO2 08/30/25 14:01 74 16 153/93 08/30/25 13:00 97.7 96 97.7 08/30/25 08:00 Room Air* 0 21 Total Intake and Output 08/29/25 08/29/25 08/30/25 15:00 23:00 07:00 Intake Total 1050 ml 2800 ml 1200 ml Output Total 2150 ml 2750 ml Balance 1050 ml 650 ml -1550 ml medications Current Medications Medications Dose Ordered Sig/Rivera Route Start Time Stop Time Status Last Admin Dose Admin Ondansetron HCl 4 mg Q4HP PRN IV 08/19/25 21:45 08/28/25 10:00 4 MG Docusate Sodium 100 mg BIDPRN PRN PO 08/19/25 21:45 08/27/25 19:16 100 MG Tamsulosin HCl 0.4 mg QPM PO 08/20/25 18:00 08/29/25 17:43 0.4 MG Ceftriaxone Sodium 50 ml @ 100 mls/hr DAILY@09 IV 08/20/25 09:00 08/30/25 09:52 100 MLS/HR Amlodipine Besylate 5 mg DAILY PO 08/20/25 10:00 08/30/25 09:55 5 MG Diagnostic Test (Pha) 1 strip ACHS 08/19/25 22:00 08/30/25 11:49 1 STRIP Insulin Human Regular ACHS SC 08/19/25 22:00 08/30/25 12:29 4 UNITS Dextrose 50 ml UD PRN IV 08/19/25 21:45 Oxycodone HCl 10 mg ONCE PRN PO 08/20/25 17:00 UNV Sodium Chloride 1,000 ml @ 150 mls/hr Q6H40M IV 08/21/25 11:30 08/30/25 02:10 150 MLS/HR Lactulose 30 ml BID PO 08/24/25 10:00 08/28/25 09:53 30 ML Clonidine HCl 0.2 mg Q6HP PRN PO 08/25/25 11:45 08/28/25 14:20 0.2 MG Lisinopril 40 mg DAILY PO 08/26/25 10:00 08/30/25 09:54 40 MG Phenazopyridine HCl 100 mg TID PRN PO 08/27/25 13:00 08/27/25 13:01 100 MG Hydromorphone HCl 2 mg Q3HR PRN IV 08/28/25 10:45 08/30/25 13:31 2 MG Trazodone HCl 50 mg HS PO 08/30/25 22:00 Quetiapine Fumarate 200 mg HS PO 08/30/25 22:00 Lamotrigine 100 mg DAILY PO 08/31/25 10:00 Lamotrigine 200 mg HS PO 08/30/25 22:00 Buspirone HCl 20 mg Q12HR PO 08/30/25 22:00 Hydroxyzine Pamoate 50 mg DAILY PRN PO 08/31/25 10:[address] Scan report reviewed. PATIENT: SHY HERNANDES ACCT: [id number] UNIT: [id number] : 1970 LOC: [facility] ROOM / BED: [address] [place] [address] AGE / SEX: 54 / M ADM STATUS: ADM IN SERVICE 0700 ORDERING PHYSICIAN: JAMIE MIN MD PROCEDURE(s): ABPL - CT AB PEL WO CON-NO ORAL OR IV REASON: ureteral stone ORDER NUMBER(s): [id number], ACCESSION NUMBER(s): [id number] Exam: CT CT AB PEL WO CON-NO ORAL OR IV History: ureteral stone, pain Comparison Study: CT CT AB PEL WO CON-NO ORAL OR IV on DOS: 08/25/25, CT CT AB PEL WO CON-NO ORAL OR IV on DOS: 08/19/25, CT AB PEL WITH ORAL CON ONLY on DOS: 05/08/21, ABDOMEN LIMITED on DOS: 05/08/21, CT ABD PELVIS WO CONTRAST on DOS: 05/07/21 Technique: Multidetector spiral CT of the abdomen was performed from lung bases to pubic symphysis. Imaging was performed without IV contrast. Axial, coronal and sagittal multiplanar reformats were obtained from the axial data set by the technologist. Radiation Dose : 1. Abdomen/Pelvis: CTDIvol 21.99 mGy, DLP 1353.91 mGy*cm. Findings: Evaluation of solid organs is limited due to lack of intravenous contrast use. Lung Bases: No acute or significant lung base finding. Normal heart size. No pleural or pericardial effusion. Liver: The liver is normal in size. No focal lesions. Gallbladder and Biliary Tree: Unremarkable Spleen: Unremarkable Pancreas: The pancreas is grossly normal in appearance. Adrenal Glands: Unremarkable Kidneys: Double-J ureteric stent on the right. Previously noted proximal to mid right ureteric calculus is no longer seen. No hydronephrosis. Nonobstructing 3 mm right lower pole renal calculus. Bladder: Mann catheter in-situ. Bowel: The stomach is grossly normal in appearance. Small bowel and colon are normal in caliber and distribution. The appendix is not visualized; however, no secondary findings of acute appendicitis identified. Ascites: Absent Lymphadenopathy: No mesenteric, retroperitoneal or periportal lymphadenopathy. Abdominal Wall and Mesentery: Unremarkable. Vasculature: The visualized abdominal aorta is normal in size and caliber. Evaluation of abdominal and pelvic vessels is limited due to lack of intravenous contrast. Pelvic Organs: Unremarkable Musculoskeletal: No aggressive focal bony lesions, acute fractures or dislocation. IMPRESSION: Previously noted right ureteral stone is no longer seen. Radiation optimization: All CT scans at this facility use at least one of these dose optimization techniques: automated exposure control mA and/or kV adjustment per patient size (includes targeted exams where dose is matched to clinical indication) or iterative reconstruction. ATED BY: CLARA HUDSON MD DICTATED DATE/TIME: 08/29/25933 SIGNED BY: CLARA HUDSON MD SIGNED DATE/TIME: 08/29/25933 CC: laboratory and microbiology Laboratory Tests 08/25/25 06:13 Test 08/25/25 06:13 Range/Units Serum Glucose 128 H 74-106 mg/dL Problem List Right flank pain Right ureteral stone, 9 mm Right ureteral stent USD Mann in situ Assessment/Plan 3 mm right lower pole renal stone possibly representing the ureteral fragment that moved into the kidney during ureteroscope epic laser lithotripsy Right ureteral stent Urethral stricture disease/meatal stenosis Keep Mann to gravity. We will follow up for voiding trial next week in the urology clinic if patient is discharged The right ureteral stent will be removed in 6-8 weeks The right kidney stone is 3 mm and would likely pass spontaneously when the stent is removed Dietary Evaluation Review Comments: CCHO-60 Cardiac Diet Weight Management Expected Outcomes/Goals: gradual wt loss Plan discussed with: Patient, Other JAMIE MIN MD Aug 30, 2025 16:37
[2025-08-30 21:00] VITALS: BP 155/91; PULSE 80; RESP 17; TEMP 98.1; O2SAT 95
[2025-08-30] MEDS: lamoTRIgine 100 MG TAB PO SCH (21:02)
[2025-08-31] VITALS (8 sets, daily range): BP systolic 112–161; BP diastolic 74–111; PULSE 65–78; RESP 17–18; TEMP 97.7–98.4; O2SAT 93–96
[2025-08-31] MEDS: lamoTRIgine 100 MG TAB PO SCH (08:51)
[2025-08-31] MEDS ORDERED: hydrOXYzine 25 MG TAB or CAP PO PRN (10:00)
--- NOTE | 2025-08-31 10:46 | DVHPN2 ---
Reviewed: Care Plan, H&P, Labs, Medications, Previous Orders, Radiology Changes from previous H/P or p: No Changes Objective Vitals Vital Signs Date Time Temp Pulse Resp B/P (MAP) Pulse Ox O2 Delivery O2 Flow Rate FiO2 08/31/25 09:18 97.9 65 17 128/74 (92) 93 97.9 08/31/25 07:30 Room Air* 0 21 Intake/Output Intake and Output 08/31/25 07:00 Intake Total 6250 ml Output Total 7950 ml Balance -1700 ml Intake Oral 6250 ml Output Urine Total 7950 ml # Bowel Movements 1 Medications Current Medications Medications Dose Ordered Sig/Rivera Route Start Time Stop Time Status Last Admin Dose Admin Ondansetron HCl 4 mg Q4HP PRN IV 08/19/25 21:45 08/28/25 10:00 4 MG Docusate Sodium 100 mg BIDPRN PRN PO 08/19/25 21:45 08/27/25 19:16 100 MG Tamsulosin HCl 0.4 mg QPM PO 08/20/25 18:00 08/30/25 17:26 0.4 MG Ceftriaxone Sodium 50 ml @ 100 mls/hr DAILY@09 IV 08/20/25 09:00 08/31/25 08:49 100 MLS/HR Amlodipine Besylate 5 mg DAILY PO 08/20/25 10:00 08/31/25 08:51 5 MG Diagnostic Test (Pha) 1 strip ACHS 08/19/25 22:00 08/31/25 06:25 1 STRIP Insulin Human Regular ACHS SC 08/19/25 22:00 08/31/25 06:29 2 UNITS Dextrose 50 ml UD PRN IV 08/19/25 21:45 Oxycodone HCl 10 mg ONCE PRN PO 08/20/25 17:00 UNV Sodium Chloride 1,000 ml @ 150 mls/hr Q6H40M IV 08/21/25 11:30 08/31/25 04:50 150 MLS/HR Lactulose 30 ml BID PO 08/24/25 10:00 08/28/25 09:53 30 ML Clonidine HCl 0.2 mg Q6HP PRN PO 08/25/25 11:45 08/28/25 14:20 0.2 MG Lisinopril 40 mg DAILY PO 08/26/25 10:00 08/31/25 08:51 40 MG Phenazopyridine HCl 100 mg TID PRN PO 08/27/25 13:00 08/27/25 13:01 100 MG Trazodone HCl 50 mg HS PO 08/30/25 22:00 08/30/25 21:02 50 MG Quetiapine Fumarate 200 mg HS PO 08/30/25 22:00 08/30/25 21:02 200 MG Lamotrigine 100 mg DAILY PO 08/31/25 10:00 08/31/25 08:51 100 MG Lamotrigine 200 mg HS PO 08/30/25 22:00 08/30/25 21:02 200 MG Buspirone HCl 20 mg Q12HR PO 08/30/25 22:00 08/31/25 08:51 20 MG Hydroxyzine Pamoate 50 mg DAILY PRN PO 08/31/25 10:00 Hydromorphone HCl 2 mg Q4HP PRN PO 08/31/25 10:45 UNV Laboratory Results Laboratory Tests 08/25/25 06:13 Urinalysis Test 08/19/25 18:50 Urine Color Yellow (Yellow) Urine Clarity Clear (Clear) Urine pH 5.5 (5.0-9.0) Urine Specific [place] 1.027 (1.001-1.035) Urine Protein Trace (Negative) H Urine Ketones Negative (Negative) Urine Blood 3+ /uL (Negative) H Urine Nitrite Negative (Negative) Urine Bilirubin Negative (Negative) Urine Urobilinogen Normal mg/dL (Negative) Urine Leukocyte Esterase 2+ /uL (Negative) Urine RBC 43 /hpf (0 - 3) Urine Microscopic WBC 26 /HPF (0-3) H Urine Squamous Epithelial Cells Few /hpf (<5) Urine Bacteria None seen /hpf (None Seen) Urine Mucus Few (None Seen) Urine Glucose 3+ mg/dL (Normal) H Microbiology Microbiology Date/Time Source Procedure Growth Status 08/20/25 11:43 Blood Blood Culture - Final NO GROWTH AFTER 5 DAYS OF INCUBATION. Complete 08/19/25 18:50 Voided Urine Urine Culture - Final Complete Labs and/or images reviewed: Labs reviewed by me, Image(s) reviewed by me Assessment/Plan Assessment/Plan Acute Right flank pain Dilaudid 2 mg IV q.6 p.r.n. Right mid ureteral calculus, 9 mm Right hydronephrosis urology consult by Dr. Arguello appreciated, status post cystoscopy and right ureteral stent placement, status post ESWL on 08/23/2025 by , Status post Right ureteroscopy/pyeloscopy, laser lithotripsy with renal evacuation, Cystoscopy with right ureteral stent exchange on 08-27-[address] abdomen pelvis without contrast 08/29/2025 shows there is no right ureteral stone; Dr. Arguello advised Mann to be removed in one week and he will remove right ureteral stent in eight weeks Sepsis secondary to urinary tract infection: Acute urinary tract infection: Blood cultures pending, urine cultures negative, continue Rocephin, blood cultures negative, urine cultures negative Hypertension Depression Bipolar: Continue home medication Seroquel, trazodone, buspirone, lamotrigine, hydroxyzine Diabetes: Insulin sliding scale Anxiety History of Recurrent kidney stones Physical therapy ordered Dominik Hernandez [phone] bedside Patient will be discharged to residential facility for pain management and physical therapy and the plan is acceptable to the patient and his Advanced care planning time 20 minutes Plan discussed with: Patient My Orders Orders - RAFFAELE VALDERRAMA MD Procedure Category Date Status Time Trazodone Hcl PHA 08/30/25 In Process (Desyrel) 22:00 Quetiapine Fumarate PHA 08/30/25 In Process Tablet (Seroquel Tab 22:00 Lamotrigine Tablet PHA 08/31/25 In Process (Lamictal Tablet) 10:00 Lamotrigine Tablet PHA 08/30/25 In Process (Lamictal Tablet) 22:00 Buspirone Hcl Tablet PHA 08/30/25 In Process (Buspar Tablet) 22:00 Hydroxyzine Oral PHA 08/31/25 In Process (Vistaril Oral) 10:00 Hydromorphone Tablet PHA 08/31/25 Logged (Dilaudid Tablet) 10:45 Date of Service: Aug 31, 2025 Billing Provider: RAFFAELE VALDERRAMA MD Common Visit Codes: [id number] INP/OBS CARE(HIGH) RAFFAELE VALDERRAMA MD Aug 31, 2025 10:46
--- NOTE | 2025-08-31 10:54 | DVHDS2 ---
Discharge Summary Date of Admission Aug 19, 2025 at 21:39 Date of Discharge: Aug 31, 2025 Admitting Diagnosis Right flank pain Wounds: Right ureteral stent placement and ESWL Labs/Diagnostic Data: Laboratory Results Test 08/31/25 06:07 08/28/25 10:53 08/25/25 06:13 08/20/25 11:43 POC Glucose 158 mg/dl (70-106) White Blood Count 5.3 10^3/uL (4.4-10.8) Red Blood Count 4.01 10^6/uL (4.5-5.90) Hemoglobin 12.1 g/dL (13.5-17.5) Hematocrit 35.1 % (41.0-53.0) Mean Corpuscular Volume 87.6 fL (80.0-100.0) Mean Corpuscular Hemoglobin 30.2 pg (28.0-32.0) Mean Corpuscular Hemoglobin Concent 34.5 g/dL (32.0-36.0) Red Cell Distribution Width 13.7 % (11.8-14.3) Platelet Count 209 10^3/uL (140-450) Mean Platelet Volume 8.8 fL (6.9-10.8) Neutrophils (%) (Auto) 35.8 % (37.0-80.0) Lymphocytes (%) (Auto) 50.5 % (10.0-50.0) Monocytes (%) (Auto) 8.2 % (0.0-12.0) Eosinophils (%) (Auto) 4.5 % (0.0-7.0) Basophils (%) (Auto) 1.0 % (0.0-2.0) Neutrophils # (Auto) 1.9 10 ^3/uL (1.6-8.6) Lymphocytes # (Auto) 2.7 10 ^3/uL (0.4-5.4) Monocytes # (Auto) 0.4 10 ^3/uL (0-1.3) Eosinophils # (Auto) 0.2 10 ^3/uL (0-0.8) Basophils # (Auto) 0.1 10 ^3/uL (0-0.2) Nucleated Red Blood Cells 0.2 % Sodium Level 143 mmol/L (136-145) Potassium Level 4.0 mmol/L (3.5-5.1) Chloride Level 109 mmol/L (98-107) Carbon Dioxide Level 22 mmol/L (20-31) Anion Gap 12 (5-15) Blood Urea Nitrogen 9 mg/dL (9-23) Creatinine 0.91 mg/dL (0.700-1.30) Glomerular Filtration Rate Calc 101 mL/min (>90) BUN/Creatinine Ratio 9.9 (10.0-20.0) Serum Glucose 128 mg/dL (74-106) Calcium Level 8.6 mg/dL (8.7-10.4) Total Bilirubin 0.3 mg/dL (0.2-1.0) Aspartate Amino Transferase (AST) 23 U/L (13-40) Alanine Aminotransferase (ALT) 25 U/L (7-40) Alkaline Phosphatase 42 U/L (46-116) Total Protein 6.5 g/dL (5.7-8.2) Albumin 3.8 g/dL (3.2-4.8) Prothrombin Time 11.5 sec (9.3-11.8) Prothrombin Time INR 1.09 (0.9-1.15) Activated Partial Thromboplast Time 25.6 SEC (24.5-34.5) Test 08/19/25 20:11 08/19/25 18:50 08/19/25 17:44 08/19/25 17:04 Troponin I High Sensitivity < 3 ng/L (</=54) Urine Color Yellow (Yellow) Urine Clarity Clear (Clear) Urine pH 5.5 (5.0-9.0) Urine Specific [place] 1.027 (1.001-1.035) Urine Protein Trace (Negative) Urine Ketones Negative (Negative) Urine Blood 3+ /uL (Negative) Urine Nitrite Negative (Negative) Urine Bilirubin Negative (Negative) Urine Urobilinogen Normal mg/dL (Negative) Urine Leukocyte Esterase 2+ /uL (Negative) Urine RBC 43 /hpf (0 - 3) Urine Microscopic WBC 26 /HPF (0-3) Urine Squamous Epithelial Cells Few /hpf (<5) Urine Bacteria None seen /hpf (None Seen) Urine Mucus Few (None Seen) Urine Glucose 3+ mg/dL (Normal) Urine Opiates Screen Pos (NEGATIVE) Urine Fentanyl Screen Neg (NEGATIVE) Urine Barbiturates Screen Neg (NEGATIVE) Urine Phencyclidine Screen Neg (NEGATIVE) Urine Amphetamines Screen Neg (NEGATIVE) Urine Benzodiazepines Screen Neg (NEGATIVE) Urine Cocaine Screen Neg (NEGATIVE) Urine Cannabinoids Screen Neg (NEGATIVE) Thyroid Stimulating Hormone (TSH) 2.94 uIU/mL (0.55-4.78) Lactic Acid Level 1.5 mmol/L (0.4-2.0) Magnesium Level 1.7 mg/dL (1.6-2.6) B-Type Natriuretic Peptide 36.62 pg/mL (0-100) Other Laboratory Tests 08/25/25 06:13 Brief Hx & Hospital Course: 64-year-old male with a history of hypertension depression bipolar diabetes anxiety history of kidney recurrent kidney stones chronic back pain and pain medication came in complaining of right flank pain. Found to have 9 mm right mid ureteral calculus underwent ESWL and right ureteral stent placement by Urology Dr Arguello. Postop course was complicated requiring repeat cystoscopy and ureteral stent exchange. CT abdomen pelvis without contrast done two days prior to discharge showed no right ureteral stone only small 3 mm right nonobstructing kidney stone, which probably will pass after the stent is removed. Patient received physical therapy patient being discharged to shelter facility for rehab for physical therapy medication management He will have Mann removed in one week and right ureteral stent removed in eight weeks by Urology. Mild UTI treated with Rocephin. The patient's need high doses of Dilaudid for pain controlled during the hospitalization, IV Dilaudid converted to p.o. before discharge The patient and agreed for SNF placement. Consults/Reason for consult Urology Dr. Arguello Operations or Procedures Right ureteral stent placement and ESWL Condition at Discharge: Fair Final Diagnosis/Problems List Acute Right flank pain Dilaudid 2 mg IV q.6 p.r.n. Right mid ureteral calculus, 9 mm Right hydronephrosis urology consult by Dr. Arguello appreciated, status post cystoscopy and right ureteral stent placement, status post ESWL on 08/23/2025 by , Status post Right ureteroscopy/pyeloscopy, laser lithotripsy with renal evacuation, Cystoscopy with right ureteral stent exchange on 08-27-[address] abdomen pelvis without contrast 08/29/2025 shows there is no right ureteral stone; Dr. Arguello advised Mann to be removed in one week and he will remove right ureteral stent in eight weeks Sepsis secondary to urinary tract infection: Acute urinary tract infection: Blood cultures pending, urine cultures negative, continue Rocephin, blood cultures negative, urine cultures negative Hypertension Depression Bipolar: Continue home medication Seroquel, trazodone, buspirone, lamotrigine, hydroxyzine Diabetes: Insulin sliding scale Anxiety History of Recurrent kidney stones Discharge Disposition: Alf Facility Discharge Instruct/Medications Diet: Regular Activity: Light activity Follow Up/Referral: Follow up with the custodial Dr Follow up with the Urology Dr. Arguello in one week for Mann removal and in eight week for removal of the right ureteral stent Medications: see list Scheduled Buspirone Hcl (Buspirone Hcl), 20 MG PO Q12HR, (Reported) Fenofibrate (Fenofibrate Micronized), 1 CAP PO DAILY, (Reported) Hydrocodone-Acetaminophen ([place] 10/325MG), 1 TAB PO Q4HP, (Reported) Hydroxyzine Hcl (Hydroxyzine Hcl), 50 MG PO DAILY, (Reported) Lamotrigine (Lamotrigine), 1 TAB PO DAILY, (Reported) Lisinopril (Lisinopril), 40 MG PO DAILY, (Reported) Metformin Hydrochloride (Metformin Hcl), 1 TAB PO BID, (Reported) Omeprazole (Prilosec Susp (For Gt)), 20 MG PO DAILY, (Reported) Quetiapine Fumarate (Quetiapine Fumarate ER), 200 MG PO HS, (Reported) Scheduled PRN Ibuprofen (Ibuprofen), 800 MG PO Q6HP PRN for PAIN SCALE 1 THRU 6, (Reported) Trazodone Hcl (Trazodone Hcl), 50 MG PO HSPRN PRN for ANXIETY, (Reported) 40 (Time taken for discharge summary 40 minutes) Discharge Statement: "Patient was advised to return to the ER or call 911 if any headaches, dizziness, shortness of breath, chest pain, abdominal pain, bleeding, fevers, or worsening of medical condition. Patient was counseled about treatment plan, medications, possible side effects, patientverbalized understanding. All questions were answered to the best of my ability. This discharge took greater then 30 minutes in planning, reviewing documentation, counseling the patient, and discussing with other team members." ASSESSMENT ASSESSMENT Hospital Course Complicated protracted hospital course Assessment Acute Right flank pain Dilaudid 2 mg IV q.6 p.r.n. Right mid ureteral calculus, 9 mm Right hydronephrosis urology consult by Dr. Arguello appreciated, status post cystoscopy and right ureteral stent placement, status post ESWL on 08/23/2025 by , Status post Right ureteroscopy/pyeloscopy, laser lithotripsy with renal evacuation, Cystoscopy with right ureteral stent exchange on 08-27-[address] abdomen pelvis without contrast 08/29/2025 shows there is no right ureteral stone; Dr. Arguello advised Mann to be removed in one week and he will remove right ureteral stent in eight weeks Sepsis secondary to urinary tract infection: Acute urinary tract infection: Blood cultures pending, urine cultures negative, continue Rocephin, blood cultures negative, urine cultures negative Hypertension Depression Bipolar: Continue home medication Seroquel, trazodone, buspirone, lamotrigine, hydroxyzine Diabetes: Insulin sliding scale Anxiety History of Recurrent kidney stones Date of Service: Aug 31, 2025 Billing Provider: RAFFAELE VALDERRAMA MD Common Visit Codes: [id number] DISCH DAY >30min RAFFAELE VALDERRAMA MD Aug 31, 2025 10:54
[2025-09-01 01:00] VITALS: BP 114/75; PULSE 91; RESP 18; TEMP 97.8; O2SAT 94
[2025-09-01 05:00] VITALS: BP 144/91; PULSE 63; RESP 18; TEMP 97.6; O2SAT 94
[2025-09-01 08:00] VITALS: RESP 18
[2025-09-01 09:00] VITALS: BP 137/92; PULSE 72; RESP 20; TEMP 97.4; O2SAT 97
--- NOTE | 2025-09-01 10:22 | DVHPN2 ---
Reviewed: Care Plan, H&P, Labs, Medications, Previous Orders, Radiology Changes from previous H/P or p: No Changes Objective Vitals Vital Signs Date Time Temp Pulse Resp B/P (MAP) Pulse Ox O2 Delivery O2 Flow Rate FiO2 09/01/25 09:34 128/74 09/01/25 05:00 97.6 63 18 94 97.6 08/31/25 20:00 Room Air* 0 21 Intake/Output Intake and Output 09/01/25 07:00 Intake Total 3400 ml Output Total 3900 ml Balance -500 ml Intake Oral 3400 ml Output Urine Total 3900 ml # Bowel Movements 2 Medications Current Medications Medications Dose Ordered Sig/Rivera Route Start Time Stop Time Status Last Admin Dose Admin Ondansetron HCl 4 mg Q4HP PRN IV 08/19/25 21:45 08/28/25 10:00 4 MG Docusate Sodium 100 mg BIDPRN PRN PO 08/19/25 21:45 08/27/25 19:16 100 MG Tamsulosin HCl 0.4 mg QPM PO 08/20/25 18:00 08/31/25 16:36 0.4 MG Amlodipine Besylate 5 mg DAILY PO 08/20/25 10:00 09/01/25 09:34 5 MG Diagnostic Test (Pha) 1 strip ACHS 08/19/25 22:00 09/01/25 06:38 1 STRIP Insulin Human Regular ACHS SC 08/19/25 22:00 09/01/25 06:38 3 UNITS Dextrose 50 ml UD PRN IV 08/19/25 21:45 Oxycodone HCl 10 mg ONCE PRN PO 08/20/25 17:00 UNV Sodium Chloride 1,000 ml @ 150 mls/hr Q6H40M IV 08/21/25 11:30 09/01/25 00:50 150 MLS/HR Lactulose 30 ml BID PO 08/24/25 10:00 08/28/25 09:53 30 ML Clonidine HCl 0.2 mg Q6HP PRN PO 08/25/25 11:45 08/28/25 14:20 0.2 MG Lisinopril 40 mg DAILY PO 08/26/25 10:00 09/01/25 09:32 40 MG Phenazopyridine HCl 100 mg TID PRN PO 08/27/25 13:00 08/27/25 13:01 100 MG Trazodone HCl 50 mg HS PO 08/30/25 22:00 08/31/25 23:20 50 MG Quetiapine Fumarate 200 mg HS PO 08/30/25 22:00 08/31/25 23:21 200 MG Lamotrigine 100 mg DAILY PO 08/31/25 10:00 09/01/25 09:33 100 MG Lamotrigine 200 mg HS PO 08/30/25 22:00 08/31/25 23:21 200 MG Buspirone HCl 20 mg Q12HR PO 08/30/25 22:00 09/01/25 09:32 20 MG Hydroxyzine Pamoate 50 mg DAILY PRN PO 08/31/25 10:00 Hydromorphone HCl 2 mg Q4HP PRN PO 08/31/25 10:45 09/01/25 06:45 2 MG Laboratory Results Laboratory Tests 08/25/25 06:13 Urinalysis Test 08/19/25 18:50 Urine Color Yellow (Yellow) Urine Clarity Clear (Clear) Urine pH 5.5 (5.0-9.0) Urine Specific [place] 1.027 (1.001-1.035) Urine Protein Trace (Negative) H Urine Ketones Negative (Negative) Urine Blood 3+ /uL (Negative) H Urine Nitrite Negative (Negative) Urine Bilirubin Negative (Negative) Urine Urobilinogen Normal mg/dL (Negative) Urine Leukocyte Esterase 2+ /uL (Negative) Urine RBC 43 /hpf (0 - 3) Urine Microscopic WBC 26 /HPF (0-3) H Urine Squamous Epithelial Cells Few /hpf (<5) Urine Bacteria None seen /hpf (None Seen) Urine Mucus Few (None Seen) Urine Glucose 3+ mg/dL (Normal) H Microbiology Microbiology Date/Time Source Procedure Growth Status 08/20/25 11:43 Blood Blood Culture - Final NO GROWTH AFTER 5 DAYS OF INCUBATION. Complete 08/19/25 18:50 Voided Urine Urine Culture - Final Complete Labs and/or images reviewed: Labs reviewed by me, Image(s) reviewed by me Assessment/Plan Assessment/Plan Acute Right flank pain Dilaudid 2 mg IV q.6 p.r.n. Right mid ureteral calculus, 9 mm Right hydronephrosis urology consult by Dr. Jos newman, status post cystoscopy and right ureteral stent placement, status post ESWL on 08/23/2025 by , Status post Right ureteroscopy/pyeloscopy, laser lithotripsy with renal evacuation, Cystoscopy with right ureteral stent exchange on 08-27-[address] abdomen pelvis without contrast 08/29/2025 shows there is no right ureteral stone; Dr. Arguello advised Mann to be removed in one week and he will remove right ureteral stent in eight weeks Sepsis secondary to urinary tract infection: Acute urinary tract infection: Blood cultures pending, urine cultures negative, continue Rocephin, blood cultures negative, urine cultures negative Hypertension Depression Bipolar: Continue home medication Seroquel, trazodone, buspirone, lamotrigine, hydroxyzine Diabetes: Insulin sliding scale Anxiety History of Recurrent kidney stones Physical therapy ordered Dominik Hernandez [phone] bedside Patient was discharged to custodial facility on 08/31/2025, patient changed his mind and wants to go home Discharged home Plan discussed with: Patient My Orders Orders - RAFFAELE VALDERRAMA MD Procedure Category Date Status Time Hydromorphone Tablet PHA 08/31/25 In Process (Dilaudid Tablet) 10:45 * [employer] CONS 08/31/25 Transmitted Consult Discharge DISCHARGE 08/31/25 Transmitted 10:48 Date of Service: Sep 01, 2025 Billing Provider: RAFFAELE VALDERRAMA MD Common Visit Codes: [id number] INP/OBS CARE(HIGH) RAFFAELE VALDERRAMA MD Sep 01, 2025 10:22
[2025-09-01] MEDS ORDERED: TAMS-35 PO (10:25)
[2025-09-01] MEDS ORDERED: TRAM-626 PO (10:25)
[2025-09-01 10:45] VITALS: BP 128/74; TEMP 36.4
[2025-09-01 13:00] VITALS: BP 146/99; PULSE 65; RESP 20; TEMP 98; O2SAT 95
== END 2025-09-01 14:38 | disposition home or self-care (01) | DRG 854 ==
LOC: ER 16:15 → OVERFLOW 21:39 → WEST WING 23:32
PROVIDERS: ADMIT Family Medicine; ATTEND Family Medicine
PROC: BT1D1ZZ Fluoroscopy of Right Kidney, Ureter and Bladder using Low Osmolar Contrast (ICD-10-PCS; 2025-08-20)
PROC: 0T7D8ZZ Dilation of Urethra, Via Natural or Artificial Opening Endoscopic (ICD-10-PCS; 2025-08-20)
PROC: 0T768DZ Dilation of Right Ureter with Intraluminal Device, Via Natural or Artificial Opening Endoscopic (ICD-10-PCS; principal; 2025-08-20 16:12)
PROC: 0TF6XZZ Fragmentation in Right Ureter, External Approach (ICD-10-PCS; 2025-08-23)
PROC: 0T768DZ Dilation of Right Ureter with Intraluminal Device, Via Natural or Artificial Opening Endoscopic (ICD-10-PCS; 2025-08-27)
PROC: 0TC68ZZ Extirpation of Matter from Right Ureter, Via Natural or Artificial Opening Endoscopic (ICD-10-PCS; 2025-08-27)
PROC: 0TP98DZ Removal of Intraluminal Device from Ureter, Via Natural or Artificial Opening Endoscopic (ICD-10-PCS; 2025-08-27)
DX: A41.9 Sepsis, unspecified organism (principal); N13.6 Pyonephrosis; I10 Essential (primary) hypertension; E11.65 Type 2 diabetes mellitus with hyperglycemia; F31.9 Bipolar disorder, unspecified; N20.0 Calculus of kidney; K42.9 Umbilical hernia without obstruction or gangrene; F41.9 Anxiety disorder, unspecified; Z87.442 Personal history of urinary calculi; Z82.49 Family history of ischemic heart disease and other diseases of the circulatory system; Z83.3 Family history of diabetes mellitus; Z80.8 Family history of malignant neoplasm of other organs or systems
CPT/HCPCS: 36415; 71045; 74018; 74176; 76000; 80053; 80307; 81001; 82360; 82962; 83605; 83735; 83880; 84443; 84484; 85025; 85610; 85730; 86850; 86900; 86901; 87040; 87086; 93005; 93971; 96361; 96365; 97163; 99291; G0378; J0131; J1100; J1815; J1885; J2003; J2250; J2405; J2704